=== PATIENT | male | born 1960 | race Caucasian/White ===

== ENCOUNTER → 2017-09-28 09:07 | Outpatient (CLI) | payer OTHER, SELFPAY ==
[2017-09-28 10:42] LABS: Hemoglobin A1c 6.2 % (4.2-6.3)
[2017-09-28 11:04] LABS: AST(SGOT) 26 U/L (15-37); Alanine Aminotransfer ALT/SGPT 39 U/L (16-61); Albumin, Serum 3.8 g/dL (3.2-5.0); Alkaline Phosphatase 71 U/L (45-117); Anion Gap 8 (5-15); BUN 19 mg/dL (7-18); BUN/Creat Ratio 18.3 RATIO (10-20); Calcium,Total 8.5 mg/dL (8.5-10.1); Chloride 108 mmol/L (98-107); Cholesterol 135 mg/dL (200); Creatinine, Serum 1.04 mg/dL (0.70-1.30); EST Glomerular Filtration Rate 78 mL/min (>60); Est Glom Filt Rate - Afr Amer 94 mL/min (>60); Globulin 3.7 g/dL (2.2-4.2); Glucose 114 mg/dL (74-106); High Density Lipoprotein 37 mg/dL; Potassium 4.7 mmol/L (3.5-5.1); Protein, Total 7.5 g/dL (6.4-8.2); Sodium Level 141 mmol/L (136-145); Triglycerides 130 mg/dL; Very Low Density Lipoprotein 26 mg/dL (5-40)
== END ==
PROVIDERS: Family Provider Internal Medicine; PCP Internal Medicine; Visit Provider Internal Medicine
DX: I10 Essential (primary) hypertension (principal); E78.5 Hyperlipidemia, unspecified; R73.03 Prediabetes
CPT/HCPCS: 36415; 80053; 80061; 83036

== ENCOUNTER → 2017-10-12 17:24 | Outpatient (CLI) | payer OTHER, SELFPAY ==
--- NOTE | 2017-10-12 17:25 | CT_ITS ---
STUDY: CTA CHEST REASON FOR EXAM: Male, 56 years old. TAA RADIATION DOSAGE (If Supplied By Facility): CTDIvol = ( 28.36 ) mGy, DLP = ( 859.14 ) mGycm TECHNIQUE: The examination was performed with the intravenous administration of 100 ml of Isovue 370 contrast material. Post-processing of the angiographic images was performed, with multiplanar reformation and 3D reconstruction. Individualized dose optimization techniques were used for this CT. COMPARISON: None. FINDINGS: Normal enhancement of the main pulmonary artery and right and left pulmonary arteries. Normal enhancement of the bilateral peripheral pulmonary arteries. There is no demonstrated pulmonary embolism. Dilated ascending aorta measuring 4.7 cm.. There is no demonstrated aortic dissection. Normal heart and pericardium. Normal mediastinum. Normal hilar regions. Normal visualized trachea and bronchi. The lungs are well expanded. Normal pulmonary parenchyma. Normal pleura. Normal chest wall structures. Mild degenerative vertebral changes. Normal visualized upper abdomen. CT/CTA Chest W/WO Contrast IMPRESSION: No demonstrated pulmonary embolism or arterial dissection. Dilated ascending aorta. Electronically Signed: Collin Tahkur DO at 21:43 EDT Tel [phone], Service support ,
== END ==
PROVIDERS: Family Provider Internal Medicine; PCP Internal Medicine; Visit Provider Internal Medicine Cardiovascular Disease
DX: I71.2 Thoracic aortic aneurysm, without rupture (principal)
CPT/HCPCS: 71275; Q9967

== ENCOUNTER → 2017-10-25 05:57 | Outpatient (CLI) | payer OTHER, SELFPAY ==
--- NOTE | 2017-10-25 06:07 | ECHOD_ITS ---
Reason For Study: Bicuspid AV Procedure This was a 2D Doppler, Color Flow transthoracic echocardiogram. Exam performed in department. Left Ventricle Normal LV size. Mild concentric left ventricular hypertrophy. Left ventricular systolic function is normal. The estimated ejection fraction is 55 %. Normal diastology for age. No regional wall motion abnormalities noted. Right Ventricle Normal RV size. Normal systolic function. Atria The left atrium is mildly enlarged. The right atrium is mildly enlarged. Mitral Valve Normal mitral valve. Mild (1+) eccentric mitral valve insufficiency. Tricuspid Valve Normal tricuspid valve. Mild (1+) tricuspid valve insufficiency. Pulmonary artery systolic pressure is 28 mmHg. Aortic Valve Bicuspid aortic valve. Mean aortic valve gradient 9 mmHg. Pulmonic Valve Normal pulmonic valve. Great Vessels Mild to moderately dilated aortic root. The pulmonary artery is normal size. Normal inferior vena cava. Pericardium/Pleural No pericardial effusion. MMode/2D Measurements & Calculations LVIDd: 5.2 cm IVSd: 1.4 cm LVOT diam: 2.3 cm LVIDs: 3.1 cm LVPWd: 1.2 cm LVOT area: 4.2 cm2 RVDd: 4.1 cm FS: 39.3 % Ao root diam: 4.4 cm LAV(MOD-bp): 87.0 ml EDV(MOD-sp4): 161.3 ml LA dimension: 4.7 cm LAV(MOD-bp) Indexed: 33.6 ml/m2 ESV(MOD-sp4): 68.4 ml LAV(MOD-sp2): 86.2 ml EF(MOD-sp4): 57.6 % LAV(MOD-sp4): 83.5 ml EDV(MOD-sp2): 148.0 ml SV(MOD-sp4): 92.9 ml SV(MOD-sp2): 78.0 ml EF(MOD-sp2): 52.7 % LA A4 area: 25.5 cm2 RA A4 area: 23.0 cm2 Doppler Measurements & Calculations MV E max otis: 74.3 cm/sec Lat Peak E' Otis: 10.5 cm/sec Med Peak E' Otis: 7.5 cm/sec MV A max otis: 51.0 cm/sec E/E' lat: 7.1 E/E' med: 9.9 MV E/A: 1.5 Ao V2 max: 206.7 cm/sec LV V1 max: 113.7 cm/sec SV(LVOT): 110.3 ml Ao max P.1 mmHg LV V1 max P.2 mmHg Ao V2 mean: 141.7 cm/sec LV V1 mean P.0 mmHg Ao mean P.0 mmHg LV V1 mean: 81.2 cm/sec Ao V2 VTI: 43.7 cm LV V1 VTI: 26.5 cm JUN(I,D): 2.5 cm2 JUN(V,D): 2.3 cm2 PA V2 max: 146.2 cm/sec TR max otis: 241.1 cm/sec TR max P.4 mmHg Interpretation Summary Normal LV size. Mild concentric left ventricular hypertrophy. The estimated ejection fraction is 55 %. Bicuspid aortic valve. Mild to moderately dilated aortic root. Ordering Physician: Ulises Rice Referring Physician: Mary Linares Performed By: Rashmi Summers RDCS
--- NOTE | 2017-10-25 15:16 | STRESSREP_ITS ---
Stress Test Report Exercise myocardial perfusion stress test. 56-year-old man with a history of coronary artery disease. Bicuspid aortic valve. Medications atenolol lisinopril atorvastatin. Stress protocol: Resting EKG demonstrates normal sinus rhythm with rate of 88 bpm normal intervals and noted resting blood pressure is 148/92 mmHg. The patient exercised according to the regular P[facility]o protocol for a total duration of 9 minutes and 41 seconds. Patient completed 41 seconds into stage IV of the Pipo protocol. The maximum heart rate attained was 151 bpm which was 92% of maximum predicted heart rate the maximum workload was 11.2 metabolic equivalents. At rest there were no ST or T-wave changes noted suggest ischemia peak exercise upsloping ST changes only were noted would not be the criteria for ischemia. Resting blood pressure is 148/92 with a peak blood pressure 184/ 92 mmHg. No clinical angina was noted the test was terminated due to leg fatigue. Myocardial perfusion protocol. 14.7 mCi of technetium 99m sestamibi was injected at rest. The patient exercised according to regular Pipo protocol for 9 minutes and 41 seconds attaining a maximum workload of 11.2 metabolic equivalents. At peak exercise 44.8 mCi of technetium 99m sestamibi was injected stress images were obtained stress and rest images were reconstructed and compared in the short axis vertical long horizontal long axis. Gated images were also obtained. Perfusion SPECT analysis. Review of the stress images demonstrate normal uptake of tracer noted in all areas of the myocardium. The resting images similarly demonstrate normal uptake of tracer noted in all areas of the myocardium. No areas of reversibility are noted suggest ischemia and no previous infarct is noted. Gated SPECT analysis: The gated ejection fraction is 66%. Conclusion . Normal exercise myocardial perfusion stress test at a high workload. No clinical angina noted. No arrhythmias noted. Good functional capacity. Preserved ejection fraction.
== END ==
PROVIDERS: Family Provider Internal Medicine; PCP Internal Medicine; Visit Provider Internal Medicine Cardiovascular Disease
DX: Q23.1 Congenital insufficiency of aortic valve (principal); I25.10 Atherosclerotic heart disease of native coronary artery without angina pectoris
CPT/HCPCS: 78452; 93017; 93306; A9500; A4216

== ENCOUNTER → 2018-08-04 09:59 | Outpatient (CLI) | payer OTHER, SELFPAY ==
[2018-08-04 12:49] LABS: Hemoglobin A1c 6.4 % (4.2-6.3)
--- OUTSIDE RECORDS SUMMARY | 2018-10-09 00:11 | XMS RPT_ITS ---
:1960 Author Organization [facility] Care Team Providers Name Role Phone Oleghe, Efewongbe Attending Unavailable Oleghe, Efewongbe Referring Unavailable Oleghe, Efewongbe Primary Care Unavailable Oleghe, Efewongbe Attending Unavailable Oleghe, Efewongbe Referring Unavailable Oleghe, Efewongbe Attending Unavailable Oleghe, Efewongbe Referring Unavailable Oleghe, Efewongbe Primary Care Unavailable María Mayen Attending Unavailable Krystal, Ulises Attending Unavailable Cebul III, Mauro Referring Unavailable Oleghe, Efewongbe Primary Care Unavailable Krystal, Austin Attending Unavailable Krystal, Ulises Referring Unavailable Oleghe, Efewongbe Primary Care Unavailable Krystal, Ulises Attending Unavailable Krystal, Ulises Referring Unavailable Oleghe, Efewongbe Primary Care Unavailable Krystal, Austin Attending Unavailable Krystal, Ulises Referring Unavailable Oleghe, Efewongbe Attending Unavailable Cebul III, Mauro Referring Unavailable Oleghe, Efewongbe Primary Care Unavailable Oleghe, Efewongbe Attending Unavailable Oleghe, Efewongbe Referring Unavailable Oleghe, Efewongbe Primary Care Unavailable Marcello Ortiz [employer] Attending Unavailable [facility], Mary Referring Unavailable PROBLEMS PROBLEMS DATE TYPE CONDITION / CODE ATTENDING STATUS SOURCE Unknown R73.03 - Prediabetes / Oleghe, Active [facility] R73.03(ICD-10) [facility] Hospital Repository Unknown I10 - Essential (primary) Krystal, Austin Active [facility] hypertension / Community I10(ICD-10) Hospital Repository Unknown 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, 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 / Q23.1(ICD-10) Hospital Repository Unknown I25.10 - Atherosclerotic Krystal, Austin Active [facility] heart disease of [place] Community coronary artery without Hospital angina pectoris / Repository I25.10(ICD-10) Unknown I71.2 - Thoracic aortic Krystal, Austin Active [facility] aneurysm, without rupture Community / I71.2(ICD-10) Hospital Repository Unknown E78.00 - Pure Krystal, Ulises Active [facility] hypercholesterolemia, Community unspecified / Hospital E78.00(ICD-10) Repository Unknown E78.0 - Pure Krystal, Austin Active [facility] hypercholesterolemia / Community E78.0(ICD-10) Hospital Repository Unknown E78.5 - Hyperlipidemia, Oleghe, Active [facility] unspecified / [facility] E78.5(ICD-10) Hospital Repository PROCEDURES PROCEDURES No Procedure Records FoundRESULTS RESULTS INTERNAL MEDICINE Observed: 08/05/2018 Status: F Source: [facility] OFFICE VISIT 11:59 AM [facility] REPOSITORY [facility] [address] [place] [address] [place] [address] OFFICE VISIT Date of Service: 08/05/18 MR#: [id number] Acct: [id number] Name: LEAHRAYCHASTITY Rep #: [id number] : 1960 Provider: Marcello Ortiz NP Age/Sex: 57/M Location: [facility] [place] [facility] Status: Signed Intake Vital Signs08/05/18 Height 6 ft 3 in Intake Visit Reasons: 3 MO F/U Chief Complaint: f/u visit Is patient in pain?: No Allergies No Known Allergies Allergy (Unverified 01/04/18 08:10) Medications aspirin 81 mg chewable tablet PO 09/28/17 [History Confirmed 01/04/18] atenolol 25 mg tablet 25 mg PO QDAY #90 tab 10/05/17 [Rx Confirmed 01/04/18] atorvastatin 80 mg tablet 80 mg PO QDAY #90 tab 10/08/17 [Rx Confirmed 01/04/18] sildenafil 25 mg tablet 25 mg PO ONCE PRN #7 tab 11/11/17 [Rx Confirmed 01/04/18] lisinopril 20 mg tablet 20 mg PO QDAY #90 tab 01/04/18 [Rx Confirmed 01/04/18] PFSH Medical History Thoracic aortic aneurysm (Chronic) Obesity (BMI 30-39.9) (Chronic) Non-rheumatic aortic regurgitation (Chronic) Atherosclerosis of coronary artery of [place] heart without angina pectoris (Chronic) Bicuspid aortic valve (Chronic) Hyperlipemia (Chronic) Hypertension (Chronic) Benign neoplasm of colon (Chronic) Chronic back pain (Chronic) Surgical History History of coronary artery stent placement (Chronic 12/21/06) History of appendectomy (Chronic) Family History Aunt Colon cancer Uncle Myocardial infarction Father CVA (cerebral vascular accident) Sister Cancer lyphoma Social History Smoking Status: Former smoker how long ago did patient quit smokin alcohol intake: current alcohol intake frequency: a few times a month Alcohol type: beer substance use type: does not use what type of physical activity do you participate 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 Patient has a past medical history as listed above.l Patient presents today in office for follow-up on pre-diabetes and hypertension. Patient had last hemoglobin A1c done in September and result was 6.2, most recent hemoglobin A1c was 6.4. Patient states he has been on and off working on his diet but having difficulty during the holidays. Patient states he eats carbs and bread frequently but tries to limit his sugary drinks. 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 Patient does not take blood sugars at home. Patient also here for follow-up on hypertension. He has a blood pressure cuff at home but denies using it. He currently is taking lisinopril 20 mg and atenolol 25 mg daily. His blood pressure in office today is 138/91, he denies any chest pain, pressure, headaches, heart palpitations. He does not limit his salt intake or processed foods currently. The patient otherwise denies any fever, chills, nausea, vomiting, shortness of breath, chest pain or pressure, palpitations, orthopnea, lower extremity edema, syncope or presyncopal episodes. ROS Const Constitutional: No weight change, body ache, chills, fatigue, sleep problems, fever(s), change in appetite, snoring, weakness, frequent falls, headache(s) or excessive sweating Eyes Eyes: No change in vision, eye pain, light sensitivity or blurry vision ENT ENT: No headache(s), abnormal hearing, ear pain, tinnitus, nasal congestion, sore throat or neck pain Resp Respiratory: No snoring, cough, shortness of breath or wheezing Cardio Cardiology: No excessive sweating, chest pain at rest, chest pain with exertion, shortness of breath, dyspnea on exertion, palpitations, orthopnea or lightheadedness Gastro GI: No abdominal pain, change in bowel habits, constipation, diarrhea, vomiting, nausea/dyspepsia or cramping Genitourinary Male: No painful urination, urinary incontinence, urinary frequency, urinary urgency, blood in urine, testicle pain or other Musc Musculoskeletal: No neck pain, abnormal walking, joint pain, back pain, limited range of motion, numbness or tingling Skin Skin: No redness, dry skin, itching, lesions, wounds or rash Neuro Neurology: No weakness, frequent falls, headache(s), abnormal hearing, abnormal walking, numbness, tingling, abnormal speech, dizziness or memory loss Psych Psychiatric: No change in appetite, No memory loss, No anxiety, No depression, No Thoughts of harming yourself/Others Endo Endocrine: No fatigue, excessive sweating, cold intolerance, increased thirst/drinking, heat intolerance, flushing or increased hunger Aller/Imm Allergy/Immunologic: No wheezing, itchy eyes, hives or seasonal allergy symptoms Braxton/Lymp Hematologic/Lymphatic: No easy bleeding, easy bruising or enlarged lymph nodes Exam Const General: cooperative, comfortable, no acute distress Nutritional Appearance: well nourished, obese Orientation: alert, oriented x3 Limitations: mental status not altered Neck Neck: normal visual inspection, no lymphadenopathy, full ROM Chest Chest palpation AND inspection: normal inspection of the chest Resp Effort AND Inspection: normal respiratory effort, able to speak in complete sentences, normal respiratory pattern, symmetric chest movement, no audible wheezes, no cough Auscultation: Bilateral: Clear to Auscultation Cardio Palpation: normal PMI Rate: regular rate Heart Sounds: S1 normal, S2 normal, normal S1 and S2, no click, no gallops, no murmurs, no rubs GI Inspection: normal to inspection Auscultation: normal bowel sounds, no hyperactive bowel sounds, no hypoactive bowel sounds Palpation: soft Skin General: no rashes or lesions noted, elasticity normal, turgor normal Lesions: no lesions Rashes: no rashes Psych Appearance: grossly normal Mental Status: mental status grossly normal Affect: normal affect Attitude: cooperative Thought Process: normal Judgment: judgment good Office Meds Flucelvax Quad 2261-2296 (PF) Performing Provider: PADDY Castillo Administered by: Stacy Nogueira on 08/05/18 11:14 Dose Route Admin Location Lot Number Expiration Date [facility] [employer] 60 mcg IM left deltoid [id number] 01/15/19 15152-065-29 [employer]. Assessment AND Plan 1. Essential hypertension I10 Plan Hypertension: Controlled on current medications, will not make any adjustments at this time. Patient to begin to take blood pressures at home and call in or drop off 2 week BP log. Will continue with current medication regimen, risk factor reduction, and lifestyle modifications. Discussed dietary changes that should be considered which include reducing the amount of sodium intake. Plan to follow up pending home BP readings. Did discuss the benefits of the Dash eating plan 2. Borderline type 2 diabetes mellitus R73.03 Plan Diabetes: Stable at this time, A1C remains in pre-diabetic range. The patient's most recent A1c was reviewed and had increased from 6.2 to 6.4. Discussed with patient lifestyle changes, risk factor reduction, and the benefits of maximizing nutrition and exercise. Patient verbalized understanding. Patient to follow-up in 3 months with repeat A1c will be done prior. At next office visit will address preventative physical as well. Orders Orders: Medications Discontinued: Flucelvax Quad 7410-0050 (PF) (flu vac qs 2018(4 yr up60 mcg (0.5 mL) IM ONCE 1 mL 0RF NS )CD(PF)) Discontinued Reason: Office Medication marsh s been Documented as given Plan Detail Other Orders Orders: Other Medications Discontinued: Flucelvax Quad 5121-4792 (PF) (flu vac qs 2018(4 yr60 mcg (0.5 mL) IM ONCE 1 mL 0RF NS Z23 up)CD(PF)) Discontinued Reason: Office Medicat ion has been Documented as given Health Concerns Influenza vaccine given during today's office visit, patient verbalized understanding of the risks and benefits of the procedure. Patient monitored for 15 minutes after administration and tolerated the procedure well. No signs of reaction at this time. Patient education given.Patient educated on [id number] analgesics that may be appropriate for site discomfort. Follow Up 3 Months Coding Level of Care Code Off vis,est,level 3 Diagnoses Essential hypertension I10 Hypertension type: essential hypertension Borderline type 2 diabetes mellitus R73.03 08/05/18 1159 <Electronically signed by Marcello THOMASON> Date Marcello THOMASON Cosigner Signature: Date (if applicable) CC: HEMOGLOBIN A1C Collected: 08/04/2018 Status: F Source: [facility] 10:10 AM [facility] REPOSITORY TYPE CODE TESTS RESULT OUT OF RANGE REFERENCE UNITS LAB L501.9985 4.2-6.3 % High HGB A1C 6.4 Performed By: #### L501.9985 #### [facility] [place], [address] PROGRESS Observed: 02/15/2018 Status: COMPLETED Source: [place] 1:01 PM [facility] REPOSITORY HNO ID: [id number] Author: Anju Dominguez Service: (none) Author Type: Athletics Director Type: Progress Notes Filed: 02/15/2018 1:09 PM Note Text: Patient had to change PCP due insurance coverage. He seeing Dr. Linares. Anju Dominguez MA PROGRESS Observed: 02/14/2018 Status: COMPLETED Source: [place] 5:04 PM [facility] REPOSITORY HNO ID: [id number] Author: Agustina Benoit Service: (none) Author Type: Nurse Practitioner Type: Progress Notes Filed: 02/15/2018 1:09 PM Note Text: Patient Outreach on 02/14/18 -HEP C AB IA W/CONF SCRN -COMP METABOLIC PANEL -LIPID PANEL BASIC -CBC + DIFF -HGB A1C Lab orders filed. Agustina Benoit, MSN ROLL COVERER.CEMENT BASED MATERIALS PUMP TENDER PROGRESS Observed: 02/14/2018 Status: COMPLETED Source: [place] 3:09 PM [facility] REPOSITORY HNO ID: [id number] Author: Anju Dominguez Service: (none) Author Type: Athletics Director Type: Progress Notes Filed: 02/15/2018 1:09 PM Note Text: PHMA TEAMLET DOCUMENTATION Provider Action/FYI: Patient needs appointment, needs labs ordered, PSR Action/FYI: Schedule patient for appointment Teamlet has identified patient by name and date of . Team:Dr. Henry Cheung III, MD, MARIA A Georges, Anju Dominguez MA, Vivian Mcdonough LPN, Jesi Ayoub CMA, Alessandra Cox PSR, ? Last Office Visit:Visit date not found ? Next Office Visit: Visit date not found ? Last BP/Labs: Blood Pressure: Last 3 Encounter BP Readings: Date: BP: 10/20/2016 120/72 09/29/2016 128/80 07/31/2016 138/90 Lipids: Cholesterol, Total (mg/dL) Date Value 09/11/2016 120 09/26/2014 113 HDL Cholesterol (mg/dL) Date Value 09/11/2016 34 09/26/2014 30 LDL Cholesterol (mg/dL) Date Value 09/11/2016 66 09/26/2014 62 Triglyceride (mg/dL) Date Value 09/11/2016 100 09/26/2014 103 HGB A1C: Lab Results Component Value Date HBA1C 5.9 02/14/2013 HBA1C 6.1 12/05/2012 TSH: No results found for: TSH) Care Gap: Plan: ? Confirm PCP / Status ? Type of appointment needed: Follow-up ? Consultation Appointments: No patient outreach needed at this time ? Labs, HM and Immunization: Labs: CBC (Diff or PLT) CMP HGB A1C Lipids Anju Dominguez MA CNPTOUTREACH Observed: 02/14/2018 Status: COMPLETED Source: [place] 12:00 AM [facility] REPOSITORY Patient Outreach (FAMPWS) PAULIE SOLOMON ([id number]) 1960 M Date Time Provider Department 02/14/18 ANJU DOMINGUEZ (TARIK) FAMPWS During your visit today, we recorded the following information about you: Anju Dominguez MA 02/15/2018 1:09 PM Signed PHMA TEAMLET DOCUMENTATION Provider Action/FYI: Patient needs appointment, needs labs ordered, PSR Action/FYI: Schedule patient for appointment Teamlet has identified patient by name and date of . Team:Dr. Henry Cheung III, MD, MARIA A Georges, Anju Dominguez MA, Vivian Mcdonough LPN, Jesi Ayoub CMA, Alessandra Cox PSR, ? Last Office Visit:Visit date not found ? Next Office Visit: Visit date not found ? Last BP/Labs: Blood Pressure: Last 3 Encounter BP Readings: Date: BP: 10/20/2016 120/72 09/29/2016 128/80 07/31/2016 138/90 Lipids: Cholesterol, Total (mg/dL) Date Value 09/11/2016 120 09/26/2014 113 HDL Cholesterol (mg/dL) Date Value 09/11/2016 34 09/26/2014 30 LDL Cholesterol (mg/dL) Date Value 09/11/2016 66 09/26/2014 62 Triglyceride (mg/dL) Date Value 09/11/2016 100 09/26/2014 103 HGB A1C: Lab Results Component Value Date HBA1C 5.9 02/14/2013 HBA1C 6.1 12/05/2012 TSH: No results found for: TSH) Care Gap: Plan: ? Confirm PCP / Status ? Type of appointment needed: Follow-up ? Consultation Appointments: No patient outreach needed at this time ? Labs, HM and Immunization: Labs: CBC (Diff or PLT) CMP HGB A1C Lipids TARIK Cadena, MSN ROLL COVERER.CEMENT BASED MATERIALS PUMP TENDER 02/15/2018 1:09 PM Signed Patient Outreach on 02/14/18 -HEP C AB IA W/CONF SCRN -COMP METABOLIC PANEL -LIPID PANEL BASIC -CBC + DIFF -HGB A1C Lab orders filed. Agustina Benoit MSN ROLL COVERER.LINDSAY Dominguez MA 02/15/2018 1:09 PM Signed Patient had to change PCP due insurance coverage. He seeing Dr. Linares. Anju Dominguez MA Allergies As of Date: 02/14/2018 (No Known Allergies) Date Reviewed: 10/20/2016 Reviewed by: Christina Gaitan Shopper - Fully Assessed Reason for Visit: PHMA/Care Gap Outreach [3605] Primary Visit Diagnosis:Need for hepatitis C screening test [Z11.59] Other Visit Diagnoses:Hyperlipidemia, mixed [E78.2] Impaired fasting glucose [R73.01] Essential hypertension, benign [I10] Order(s):HEP C AB IA W/CONF SCRN [[id number]] Order #: [id number] FUTURE COMP METABOLIC PANEL [SQCMP] Order #: [id number] FUTURE LIPID PANEL BASIC [SQLIPB] Order #: [id number] FUTURE CBC + DIFF [SQCBCDIF] Order #: [id number] FUTURE HGB A1C [FXTGL9V] Order #: [id number] FUTURE Prescriptions as of 02/14/2018 Sig: ATENOLOL 25 MG TABLET Take 1 tablet by mouth once d* SILDENAFIL 25 MG TABLET Take 1 tablet by mouth as nee* LISINOPRIL 10 MG TABLET Take 1 tablet by mouth once d* ATORVASTATIN 80 MG TABLET Take 1 tablet by mouth once d* * ASPIRIN 81 MG TABLET Take one(1) tablet daily. Problem List As Of Date 02/14/2018 Noted Resolved HYPERLIPIDEMIA NEC/NOS [E78.5] INVALID FOR* BENIGN HYPERTENSION [I10] INVALID FOR* Sebaceous cyst [L72.3] INVALID FOR*10/20/2016 GENERALIZED ANXIETY DIS [F41.1] INVALID FOR* Aortic Valve Disorders [I35.9] INVALID FOR* Melanocytic nevus of trunk [D22.5] INVALID FOR*10/20/2016 Melanocytic nevus of neck [D22.4] INVALID FOR*10/20/2016 Benign neoplasm of colon [D12.6] INVALID FOR* Bicuspid aortic valve [Q23.1] INVALID FOR* History of coronary artery stent placement [Z95*INVALID FOR* More... ASHD (arteriosclerotic heart disease) [I25.10] INVALID FOR* More... Impaired fasting glucose [R73.01] INVALID FOR* Encounter Status:Closed by ANJU DOMINGUEZ on 02/15/18 INTERNAL MEDICINE Observed: 02/04/2018 Status: F Source: [place] OFFICE VISIT 8:51 AM [facility] Internal Medicine [facility] [place] [address] [place] [address] OFFICE VISIT Date of Service: 02/04/18 MR#: [id number] Acct: [id number] Name: LEAHHELENCHASTITY PADGETT Félix Rep #: [id number] : 1960 Provider: Mary Linares MD Age/Sex: 57/M Location: [facility] Status: Signed Intake Vital Signs02/04/18 Height 6 ft 3 in Intake Visit Reasons: 1 mo fu Chief Complaint: BP recheck Is patient in pain?: No Allergies No Known Allergies Allergy (Unverified 01/04/18 08:10) Medications aspirin 81 mg chewable tablet PO 09/28/17 [History Confirmed 01/04/18] amoxicillin 500 mg tablet 500 mg PO ONCE PRN tab 09/29/17 [History Confirmed 01/04/18] atenolol 25 mg tablet 25 mg PO QDAY #90 tab 10/05/17 [Rx Confirmed 01/04/18] atorvastatin 80 mg tablet 80 mg PO QDAY #90 tab 10/08/17 [Rx Confirmed 01/04/18] sildenafil 25 mg tablet 25 mg PO ONCE PRN #7 tab 11/11/17 [Rx Confirmed 01/04/18] lisinopril 20 mg tablet 20 mg PO QDAY #90 tab 01/04/18 [Rx Confirmed 01/04/18] [facility] Medical History Thoracic aortic aneurysm (Chronic) Obesity (BMI 30-39.9) (Chronic) Non-rheumatic aortic regurgitation (Chronic) Atherosclerosis of coronary artery of [place] heart without angina pectoris (Chronic) Bicuspid aortic valve (Chronic) Hyperlipemia (Chronic) Hypertension (Chronic) Benign neoplasm of colon (Chronic) Chronic back pain (Chronic) Surgical History History of coronary artery stent placement (Chronic 12/21/06) History of appendectomy (Chronic) Family History Aunt Colon cancer Uncle Myocardial infarction Father CVA (cerebral vascular accident) Sister Cancer lyphoma Social History Smoking Status: Former smoker how long ago did patient quit smokin alcohol intake: current alcohol intake frequency: a few times a month Alcohol type: beer substance use type: does not use what type of physical activity do you participate 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 He has no concerns at this time. Blood pressure is achieving better control still not optimal. ROS Const Constitutional: No weight change, body ache, chills, fatigue, sleep problems, fever(s), change in appetite, snoring, weakness, frequent falls, headache(s) or excessive sweating Eyes Eyes: No change in vision, eye pain, light sensitivity or blurry vision ENT ENT: No headache(s), abnormal hearing, ear pain, tinnitus, nasal congestion, sore throat or neck pain Resp Respiratory: No snoring, cough, shortness of breath or wheezing Cardio Cardiology: No excessive sweating, chest pain at rest, chest pain with exertion, shortness of breath, dyspnea on exertion, palpitations, orthopnea or lightheadedness Gastro GI: No abdominal pain, change in bowel habits, constipation, diarrhea, vomiting, nausea/dyspepsia or cramping Genitourinary Male: No painful urination, urinary incontinence, urinary frequency, urinary urgency, blood in urine, testicle pain or other Musc Musculoskeletal: No neck pain, abnormal walking, joint pain, back pain, limited range of motion, numbness or tingling Skin Skin: No redness, dry skin, itching, lesions, wounds or rash Neuro Neurology: No weakness, frequent falls, headache(s), abnormal hearing, abnormal walking, numbness, tingling, abnormal speech, dizziness or memory loss Psych Psychiatric: No change in appetite, No memory loss, No anxiety, No depression, No Thoughts of harming yourself/Others Endo Endocrine: No fatigue, excessive sweating, cold intolerance, increased thirst/drinking, heat intolerance, flushing or increased hunger Aller/Imm Allergy/Immunologic: No wheezing, itchy eyes, hives or seasonal allergy symptoms Braxton/Lymp Hematologic/Lymphatic: No easy bleeding, easy bruising or enlarged lymph nodes Exam Const General: cooperative, no acute distress Orientation: alert, awake, oriented x3 [facility] Head: atraumatic, normocephalic Ears: hearing grossly normal bilaterally Resp Effort AND Inspection: normal respiratory effort, able to speak in complete sentences Auscultation: Bilateral: Clear to Auscultation Cardio Rate: regular rate Rhythm: regular rhythm Heart Sounds: S1 normal, S2 normal, murmur systolic II/ and at the right sternal border GI Palpation: soft, no hepatosplenomegaly Neuro General: alert, awake, oriented x3, moves all extremities, CN's II-XI intact bilaterally Extrem General: pedal edema Psych Appearance: grossly normal Mood: congruent mood Affect: normal affect Assessment AND Plan 1. Essential hypertension I10 Plan Improving. Blood pressure log with an average blood pressure 130/80. Continue current medications for now. Lifestyle modifications again discussed. Blood pressure still not as optimal at his next visit will adjust his medications. 2. Borderline type 2 diabetes mellitus R73.03 Plan Repeat A1c in 3 months. If still elevated, will possibly start on metformin due to comorbid conditions. This note was generated with [employer]if[employer] dictation software. It may contain incorrect words, spelling, and punctuation that were not noted in checking the note before signing. Plan Detail Follow Up 3 Months Coding Level of Care Code Off vis,est,level 3 Diagnoses Essential hypertension I10 Hypertension type: essential hypertension Borderline type 2 diabetes mellitus R73.03 02/04/18 0851 <Electronically signed by Mary Linares MD> Date Mary Linares MD Cosigner Signature: Date (if applicable) CC: INTERNAL MEDICINE Observed: 01/04/2018 Status: F Source: [place] OFFICE VISIT 9:38 AM [facility] Internal Medicine [address] [place] [address] [place] [address] OFFICE VISIT Date of Service: 01/04/18 MR#: [id number] Acct: [id number] Name: CHASTITY SOLOMON Rep #: [id number] : 1960 Provider: Mary Linares MD Age/Sex: 57/M Location: [facility] Status: Signed Intake Vital Signs01/04/18 Height 6 ft 3 in 01/04/18 Weight: 299 lb 01/04/18 Body Mass Index (BMI) 37.3 01/04/18 Blood Pressure 142/91 Intake Visit Reasons: 3 MO F/U Chief Complaint: 3 mo F/U Is patient in pain?: No Allergies No Known Allergies Allergy (Unverified 01/04/18 08:10) Medications aspirin 81 mg chewable tablet PO 09/28/17 [History Confirmed 01/04/18] amoxicillin 500 mg tablet 500 mg PO ONCE PRN tab 09/29/17 [History Confirmed 01/04/18] atenolol 25 mg tablet 25 mg PO QDAY #90 tab 10/05/17 [Rx Confirmed 01/04/18] atorvastatin 80 mg tablet 80 mg PO QDAY #90 tab 10/08/17 [Rx Confirmed 01/04/18] sildenafil 25 mg tablet 25 mg PO ONCE PRN #7 tab 11/11/17 [Rx Confirmed 01/04/18] lisinopril 20 mg tablet 20 mg PO QDAY #90 tab 01/04/18 [Rx Confirmed 01/04/18] PFSH Medical History Thoracic aortic aneurysm (Chronic) Obesity (BMI 30-39.9) (Chronic) Non-rheumatic aortic regurgitation (Chronic) Atherosclerosis of coronary artery of [place] heart without angina pectoris (Chronic) Bicuspid aortic valve (Chronic) Hyperlipemia (Chronic) Hypertension (Chronic) Benign neoplasm of colon (Chronic) Chronic back pain (Chronic) Surgical History History of coronary artery stent placement (Chronic 12/21/06) History of appendectomy (Chronic) Family History Aunt Colon cancer Uncle Myocardial infarction Father CVA (cerebral vascular accident) Sister Cancer lyphoma Social History Smoking Status: Former smoker how long ago did patient quit smokin alcohol intake: current alcohol intake frequency: a few times a month Alcohol type: beer substance use type: does not use what type of physical activity do you participate 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 He denies any acute complaints at this time. He reports compliance with his medications but not so much with his diet and other life style modifications. ROS Const Constitutional: No chills, fatigue, fever(s), frequent falls, malaise, weakness, sleep problems or change in appetite Eyes Eyes: No blurry vision, change in vision, double vision, discharge or visual disturbances ENT ENT: No abnormal hearing, ear pain, ear pressure, tinnitus or dizziness/vertigo Resp Respiratory: No cough, shortness of breath or wheezing Cardio Cardiology: No chest pain at rest, chest pain with exertion, shortness of breath, dyspnea on exertion, generalized swelling, irregular heart rhythm, lightheadedness, orthopnea, fast heart rate or palpitations Gastro GI: No abdominal pain, change in bowel habits, constipation, diarrhea, nausea/dyspepsia or vomiting Genitourinary Male: No difficulty urinating, burning urination, painful urination, urinary incontinence, urinary frequency, urinary urgency, urinary hesitancy, urinary retention, blood in urine, Frequent nighttime urination/ nocturia, sexual problems, testicle lump or testicle pain Musc Musculoskeletal: No joint pain, back pain, joint swelling, limited range of motion, numbness or tingling Skin Skin: No change in skin color, itching, rash or wounds Breast Breast: No breast lump or breast pain Neuro Neurology: No frequent falls, weakness, abnormal hearing, numbness, tingling, unsteady gait/balance, dizziness, loss of vision, memory loss or visual disturbances Psych Psychiatric: No memory loss, No anxiety, No change in appetite, No depression, No Thoughts of harming yourself/Others Endo Endocrine: No fatigue, heat intolerance, increased thirst/drinking, increased hunger or increased urination Aller/Imm Allergy/Immunologic: No wheezing, itchy eyes or seasonal allergy symptoms Braxton/Lymp Hematologic/Lymphatic: No easy bleeding, easy bruising or enlarged lymph nodes Exam Const General: cooperative, no acute distress Orientation: alert, awake, oriented x3 [facility] Head: atraumatic, normocephalic Ears: hearing grossly normal bilaterally Resp Effort AND Inspection: normal respiratory effort, able to speak in complete sentences Auscultation: Bilateral: Clear to Auscultation Cardio Rate: regular rate Rhythm: regular rhythm Heart Sounds: S1 normal, S2 normal, murmur systolic II/ and at the right sternal border GI Palpation: soft, no hepatosplenomegaly Neuro General: alert, awake, oriented x3, moves all extremities, CN's II-XI intact bilaterally Extrem General: pedal edema Psych Appearance: grossly normal Mood: congruent mood Affect: normal affect Assessment AND Plan 1. Essential hypertension I10 Plan Poorly controlled. Increase Lisinopril to 20mg daily. Life style/ dietary modifications again discussed. Follow up in 1 month. If no improvement, will add a diuretic. 2. Borderline type 2 diabetes mellitus R73.03 Plan Last A1C of 6.2. No prior/ known history of DM. Life style/dietary modifications discussed. Repeat A1C in 3 months Orders Orders: 3. Pure hypercholesterolemia E78.00 Plan Stable. Mildly low HDL. Exercise, weight loss and healthy fats discussed. Will follow. This note was generated with Te[employer]ent Systemsation software. It may contain incorrect words, spelling, and punctuation that were not noted in checking the note before signing. Plan Detail Other Medications New: Discontinued: Follow Up 3 Months Coding Level of Care Code Off vis,est,level 3 Diagnoses Essential hypertension I10 Hypertension type: essential hypertension Borderline type 2 diabetes mellitus R73.03 Pure hypercholesterolemia E78.00 Hyperlipidemia type: pure hypercholesterolemia 01/04/18 0938 <Electronically signed by Mary Linares MD> Date Mary Linares MD Cosigner Signature: Date (if applicable) CC: STRESS REPORT Observed: 10/25/2017 Status: F Source: [place] 3:16 PM [facility] REPOSITORY [facility] Cardiovascular Services [address] [place] [id number] MR#: [id number] Acct: [id number] Name: CHASTITY SOLOMON Rep #: [id number] : 1960 56 From: Ulises Rice MD Primary Care: Mary Linares MD Status: REG CLI Ordering Dr: Edward: Lisseth Hopkins Stress Test Report Exercise myocardial perfusion stress test. 56-year-old man with a history of coronary artery disease. Bicuspid aortic valve. Medications atenolol lisinopril atorvastatin. Stress protocol: Resting EKG demonstrates normal sinus rhythm with rate of 88 bpm normal intervals and noted resting blood pressure is 148/92 mmHg. The patient exercised according to the regular P[facility]o protocol for a total duration of 9 minutes and 41 seconds. Patient completed 41 seconds into stage IV of the Pipo protocol. The maximum heart rate attained was 151 bpm which was 92% of maximum predicted heart rate the maximum workload was 11.2 metabolic equivalents. At rest there were no ST or T-wave changes noted suggest ischemia peak exercise upsloping ST changes only were noted would not be the criteria for ischemia. Resting blood pressure is 148/92 with a peak blood pressure 184/92 mmHg. No clinical angina was noted the test was terminated due to leg fatigue. Myocardial perfusion protocol. 14.7 mCi of technetium 99m sestamibi was injected at rest. The patient exercised according to regular Pipo protocol for 9 minutes and 41 seconds attaining a maximum workload of 11.2 metabolic equivalents. At peak exercise 44.8 mCi of technetium 99m sestamibi was injected stress images were obtained stress and rest images were reconstructed and compared in the short axis vertical long horizontal long axis. Gated images were also obtained. Perfusion SPECT analysis. Review of the stress images demonstrate normal uptake of tracer noted in all areas of the myocardium. The resting images similarly demonstrate normal uptake of tracer noted in all areas of the myocardium. No areas of reversibility are noted suggest ischemia and no previous infarct is noted. Gated SPECT analysis: The gated ejection fraction is 66%. Conclusion . Normal exercise myocardial perfusion stress test at a high workload. No clinical angina noted. No arrhythmias noted. Good functional capacity. Preserved ejection fraction. 10/25/17 1516 <Electronically signed by Ulises Rice MD> Date Ulises Rice MD CC: Ulises Rice MD; Mary Linares MD Date Dictated: 10/25/171512 Date Transcribed: 10/25/171512 Employment Services Director: [place] Signed ECHOCARDIOGRAM COMPLETE Observed: 10/25/2017 Status: F Source: [place] 11:58 AM [facility] REPOSITORY [facility] Cardiovascular Services [address] [place] [address] Echo Complete 10/25/17816 MR#: [id number] Acct: [id number] Name: CHASTITY SOLOMON Rep #: [id number] : 1960 56 From: Ulises Rice MD Attending Dr: Ulises Rice MD Status: REG CLI Ordering Dr: Ulises Rice MD Date: 10/25/17 Location: [facility] Sex: M C Admitted: Reason For Study: Bicuspid AV Procedure This was a 2D Doppler, Color Flow transthoracic echocardiogram. Exam performed in department. Left Ventricle Normal LV size. Mild concentric left ventricular hypertrophy. Left ventricular systolic function is normal. The estimated ejection fraction is 55 %. Normal diastology for age. No regional wall motion abnormalities noted. Right Ventricle Normal RV size. Normal systolic function. Atria The left atrium is mildly enlarged. The right atrium is mildly enlarged. Mitral Valve Normal mitral valve. Mild (1+) eccentric mitral valve insufficiency. Tricuspid Valve Normal tricuspid valve. Mild (1+) tricuspid valve insufficiency. Pulmonary artery systolic pressure is 28 mmHg. Aortic Valve Bicuspid aortic valve. Mean aortic valve gradient 9 mmHg. Pulmonic Valve Normal pulmonic valve. Great Vessels Mild to moderately dilated aortic root. The pulmonary artery is normal size. Normal inferior vena cava. Pericardium/Pleural No pericardial effusion. MMode/2D Measurements AND Calculations LVIDd: 5.2 cm IVSd: 1.4 cm LVOT diam: 2.3 cm LVIDs: 3.1 cm LVPWd: 1.2 cm LVOT area: 4.2 cm2 RVDd: 4.1 cm FS: 39.3 % Ao root diam: 4.4 cm LAV(MOD-bp): 87.0 ml EDV(MOD-sp4): 161.3 ml LA dimension: 4.7 cm LAV(MOD-bp) Indexed: 33.6 ml/m2 ESV(MOD-sp4): 68.4 ml LAV(MOD-sp2): 86.2 ml EF(MOD-sp4): 57.6 % LAV(MOD-sp4): 83.5 ml EDV(MOD-sp2): 148.0 ml SV(MOD-sp4): 92.9 ml SV(MOD-sp2): 78.0 ml EF(MOD-sp2): 52.7 % LA A4 area: 25.5 cm2 RA A4 area: 23.0 cm2 Doppler Measurements AND Calculations MV E max otis: 74.3 cm/sec Lat Peak E' Otis: 10.5 cm/sec Med Peak E' Otis: 7.5 cm/sec MV A max otis: 51.0 cm/sec E/E' lat: 7.1 E/E' med: 9.9 MV E/A: 1.5 Ao V2 max: 206.7 cm/sec LV V1 max: 113.7 cm/sec SV(LVOT): 110.3 ml Ao max P.1 mmHg LV V1 max P.2 mmHg Ao V2 mean: 141.7 cm/sec LV V1 mean P.0 mmHg Ao mean P.0 mmHg LV V1 mean: 81.2 cm/sec Ao V2 VTI: 43.7 cm LV V1 VTI: 26.5 cm JUN(I,D): 2.5 cm2 JUN(V,D): 2.3 cm2 PA V2 max: 146.2 cm/sec TR max otis: 241.1 cm/sec TR max P.4 mmHg Interpretation Summary Normal LV size. Mild concentric left ventricular hypertrophy. The estimated ejection fraction is 55 %. Bicuspid aortic valve. Mild to moderately dilated aortic root. Ordering Physician: Ulises Rice Referring Physician: Mary Linares Performed By: Rashmi Summers RDCS 10/25/17 1157 Date Ulises Rice MD CC: Ulises Rice MD; Mary Linares MD Date Dictated: 10/25/17816 Date Transcribed: 10/25/17 115 Employment Services Director: Signed CTA CHEST W/WO Observed: 10/12/2017 Status: F Source: [place] CONTRAST 5:25 PM [facility] REPOSITORY [facility] Imaging Services [facility] [place] [address] CTA Chest W/WO Contrast MR#: [id number] Acct: [id number] Name: CHASTITY SOLOMON Rep #: [id number] : 1960 M 56 From: Collin Thakur DO PCP: Mary Linares MD Status: REG CLI Study: CTA Chest W/WO Contrast Date of Exam: 10/12/17 Exam# [id number] Ordering Dr: Ulises Rice MD STUDY: CTA CHEST REASON FOR EXAM: Male, 56 years old. TAA RADIATION DOSAGE (If Supplied By Facility): CTDIvol = ( 28.36 ) mGy, DLP = ( 859.14 ) mGycm TECHNIQUE: The examination was performed with the intravenous administration of 100 ml of Isovue 370 contrast material. Post-processing of the angiographic images was performed, with multiplanar reformation and 3D reconstruction. Individualized dose optimization techniques were used for this CT. COMPARISON: None. FINDINGS: Normal enhancement of the main pulmonary artery and right and left pulmonary arteries. Normal enhancement of the bilateral peripheral pulmonary arteries. There is no demonstrated pulmonary embolism. Dilated ascending aorta measuring 4.7 cm.. There is no demonstrated aortic dissection. Normal heart and pericardium. Normal mediastinum. Normal hilar regions. Normal visualized trachea and bronchi. The lungs are well expanded. Normal pulmonary parenchyma. Normal pleura. Normal chest wall structures. Mild degenerative vertebral changes. Normal visualized upper abdomen. CT/CTA Chest W/WO Contrast IMPRESSION: No demonstrated pulmonary embolism or arterial dissection. Dilated ascending aorta. Electronically Signed: Collin Thakur DO at 21:43 EDT Tel [phone], Service support , CC: Ulises Rice MD; Mary Linares MD Employment Services Director: Signed INTERNAL MEDICINE Observed: 10/01/2017 Status: F Source: [place] OFFICE VISIT 4:58 PM [facility] Internal Medicine [facility] [place] [address] [place] [address] OFFICE VISIT Date of Service: 09/28/17 MR#: [id number] Acct: [id number] Name: CHASTITY SOLOMON Rep #: [id number] : 1960 Provider: Mary Linares MD Age/Sex: 56/M Location: [facility] Status: Signed Intake Vital Signs09/28/17 Height 6 ft 3 in 09/28/17 Weight: 304 lb 09/28/17 Body Mass Index (BMI) 38.0 09/28/17 Blood Pressure 144/100 09/28/17 Blood Pressure Location Lt brachial Intake Visit Reasons: EST PCP Chief Complaint: establish care Is patient in pain?: No Allergies No Known Allergies Allergy (Unverified 09/29/17 10:49) Medications aspirin 81 mg chewable tablet PO 09/28/17 [History Confirmed 09/28/17] atenolol 25 mg tablet 25 mg PO ONCE #90 tab 09/28/17 [Rx Confirmed 09/28/17] atorvastatin 80 mg tablet 80 mg PO QDAY 09/28/17 [History Confirmed 09/28/17] lisinopril 10 mg tablet 10 mg PO QDAY #90 tab 09/28/17 [Rx Confirmed 09/28/17] amoxicillin 500 mg tablet 500 mg PO ONCE PRN tab 09/29/17 [History Confirmed 09/29/17] PFSH Medical History Thoracic aortic aneurysm (Chronic) Obesity (BMI 30-39.9) (Chronic) Non-rheumatic aortic regurgitation (Chronic) Atherosclerosis of coronary artery of [place] heart without angina pectoris (Chronic) Bicuspid aortic valve (Chronic) Hyperlipemia (Chronic) Hypertension (Chronic) Benign neoplasm of colon (Chronic) Chronic back pain (Chronic) Surgical History History of coronary artery stent placement (Chronic 12/21/06) History of appendectomy (Chronic) Family History Aunt Colon cancer Uncle Myocardial infarction Father CVA (cerebral vascular accident) Sister Cancer lyphoma Social History Smoking Status: Former smoker how long ago did patient quit smokin alcohol intake: current alcohol intake frequency: a few times a month Alcohol type: beer substance use type: does not use what type of physical activity do you participate 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 He has a past medical history of hypertension, borderline diabetes, hyperlipidemia, CT status post stent and bicuspid aortic valve. He had previously followed up at the [facility]. He is switching care due to insurance change. He has no acute complaints at this time. Blood pressure in office is noted to be slightly elevated today at 144/100 mmHg. Patient states that he has been out of his medications for about 2 weeks. His blood pressure is said to typically range in the 130s systolic and 80s diastolic. He otherwise reports compliance with his medications. He had followed up with Dr. Sanchez at the [facility] and per patient he had yearly echos to monitor his aortic root valve. Last echocardiogram was in 2016. He is doing well otherwise and denies chest pain, palpitations or shortness of breath. ROS Const Constitutional: No weight change, body ache, chills, fatigue, sleep problems, fever(s), change in appetite, snoring, weakness, frequent falls, headache(s) or excessive sweating Eyes Eyes: No change in vision, eye pain, light sensitivity or blurry vision ENT ENT: Positive for hearing loss; no headache(s), abnormal hearing, ear pain, tinnitus, nasal congestion, sore throat or neck pain Resp Respiratory: No snoring, cough, shortness of breath or wheezing Cardio Cardiology: No excessive sweating, chest pain at rest, chest pain with exertion, shortness of breath, dyspnea on exertion, palpitations, orthopnea or lightheadedness Gastro GI: No abdominal pain, change in bowel habits, constipation, diarrhea, vomiting, nausea/dyspepsia or cramping Musc Musculoskeletal: Positive for back pain (Chronic.); no neck pain, abnormal walking, limited range of motion, numbness or tingling Skin Skin: No redness, dry skin, itching, lesions, wounds or rash Neuro Neurology: No weakness, frequent falls, headache(s), abnormal hearing, abnormal walking, numbness, tingling, abnormal speech, dizziness or memory loss Psych Psychiatric: No change in appetite, No memory loss, No anxiety, No depression, No Thoughts of harming yourself/Others Endo Endocrine: No fatigue, excessive sweating, cold intolerance, increased thirst/drinking, heat intolerance, flushing or increased hunger Aller/Imm Allergy/Immunologic: No wheezing, itchy eyes, hives or seasonal allergy symptoms Braxton/Lymp Hematologic/Lymphatic: No easy bleeding, easy bruising or enlarged lymph nodes Exam Const General: cooperative, no acute distress Orientation: alert, awake, oriented x3 HENMT Head: atraumatic, normocephalic Ears: hearing grossly normal bilaterally Resp Effort AND Inspection: normal respiratory effort, able to speak in complete sentences Auscultation: Bilateral: Clear to Auscultation Cardio Rate: regular rate Rhythm: regular rhythm Heart Sounds: S1 normal, S2 normal, murmur systolic II/ and at the right sternal border GI Palpation: soft, no hepatosplenomegaly Neuro General: alert, awake, oriented x3, moves all extremities, CN's II-XI intact bilaterally Extrem General: pedal edema Psych Appearance: grossly normal Mood: congruent mood Affect: normal affect Assessment AND Plan 1. Hypertension I10 Plan Not properly controlled at this time. He has been out of his medications for 2 weeks. Blood pressure today is 144/100mmHg. Refills for his prescription given. Life style modifications. Follow up in 1 month. Orders Orders: 2. Hyperlipemia E78.5 Plan Per patient it typically is well controlled. Last checked over a year ago. Currently on Atorvastatin 80mg daily. Lipid profile and CMP ordered. Will follow. Orders Orders: 3. Bicuspid aortic valve Q23.1 Plan Stable per patient. Last Echo was in 2015. Scheduled to follow up with Dr. Rice tomorrow. Will follow. 4. Chronic back pain M54.9; G89.29 Plan Stable. Currently no neurologic deficits. Will follow. This note was generated with [employer] dictation software. It may contain incorrect words, spelling, and punctuation that were not noted in checking the note before signing. Plan Detail Other Orders Orders: Other Medications New: Follow Up 3 Months Coding Level of Care Code Off vis,new,level 4 Diagnoses Hypertension I10 Hyperlipemia E78.5 Bicuspid aortic valve Q23.1 Chronic back pain M54.9; G89.29 10/01/17 1658 <Electronically signed by Mary Linares MD> Date Mary Linares MD Cosigner Signature: Date (if applicable) CC: CARDIOLOGY VISIT Observed: 09/29/2017 Status: F Source: [place] REPORT 11:41 AM [facility] REPOSITORY [facility] [address] [place] [address] OFFICE VISIT Date of Service: 09/29/17 MR#: [id number] Acct: [id number] Name: CHASTITY SOLOMON Rep #: [id number] : 1960 Provider: Ulises Rice MD Age/Sex: 56/M Location: [facility] Status: Signed HPI HPI Chief Complaint: Initial visit. Details: CHASTITY SOLOMON, is a 56 M who presents to the office today for an initial visit. He is a gentleman with a history of coronary artery disease as well as bicuspid aortic valve. He did have premature coronary artery disease with a cardiac catheterization in 2006 demonstrating a normal left main coronary artery left anterior descending artery with an 80% proximal stenosis and a 95% proximal stenosis. The circumflex artery had minimal disease in the right coronary artery had a 70% stenosis. He underwent angioplasty and drug- eluting stent placement to the right coronary artery the proximal left anterior descending artery using 2 overlapping 3.0 20 and 3.5 24 mm Taxus drug-eluting stents. He is done well since then denying any chest pain or shortness breath or paroxysmal nocturnal dyspnea or pedal edema no neck arm or jaw discomfort suggest angina no dizziness no diaphoresis no near syncope or syncope. He has been having yearly echocardiograms the last one which was in June 2016. His physical exam today demonstrates clear lung castro regular rate and rhythm soft 2/6 systolic murmur noted left sternal border. No pedal edema is noted. Intake Vital Signs09/29/17 Height 6 ft 3 in 09/29/17 Weight: 301 lb 09/29/17 Body Mass Index (BMI) 37.6 09/29/17 Blood Pressure 124/78 09/29/17 Respiratory Rate 18 09/29/17 Pulse Rate 60 Intake Visit Reasons: Transfer from [facility] Allergies No Known Allergies Allergy (Unverified 09/29/17 10:49) Medications aspirin 81 mg chewable tablet PO 09/28/17 [History Confirmed 09/28/17] atenolol 25 mg tablet 25 mg PO ONCE #90 tab 09/28/17 [Rx Confirmed 09/28/17] atorvastatin 80 mg tablet 80 mg PO QDAY 09/28/17 [History Confirmed 09/28/17] lisinopril 10 mg tablet 10 mg PO QDAY #90 tab 09/28/17 [Rx Confirmed 09/28/17] [facility] Medical History Thoracic aortic aneurysm (Chronic) Obesity (BMI 30-39.9) (Chronic) Non-rheumatic aortic regurgitation (Chronic) Atherosclerosis of coronary artery of [place] heart without angina pectoris (Chronic) Bicuspid aortic valve (Chronic) Hyperlipemia (Chronic) Hypertension (Chronic) Benign neoplasm of colon (Chronic) Chronic back pain (Chronic) Surgical History History of coronary artery stent placement (Chronic 12/21/06) History of appendectomy (Chronic) Family History Aunt Colon cancer Uncle Myocardial infarction Father CVA (cerebral vascular accident) Sister Cancer lyphoma Social History Smoking Status: Former smoker how long ago did patient quit smokin alcohol intake: current alcohol intake frequency: a few times a month Alcohol type: beer substance use type: does not use what type of physical activity do you participate 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 ROS Const Const: Negative for fatigue, weakness, difficulty sleeping, frequent falls, headache(s) or excessive sweating Eyes Eyes: Negative for loss of peripheral vision, transient loss of vision, blurry vision or double vision ENT ENT: Negative for headache(s), dizziness, Nosebleed/epistaxis or balance problems Cardio Chest Pain: No Edema: None Muscle aches with walking: None Resp Respiratory: Negative for SOB with activity, SOB at rest, SOB orthopnea\SOB lying down or paroxysmal nocturnal dyspnea GI GI: Negative nausea or heartburn : Negative for hematuria Musc Musc: Negative for muscle aches/ myalgia, muscle weakness, joint pain or balance problems Skin Skin: Negative non-healing lesions, unusual bruising or rash Neuro Neuro: Negative for weakness, frequent falls, blurry vision, headache(s), dizziness, lightheadedness, orthostatic symptoms or double vision Braxton Hematologic/Lymphatic: Negative for easy bruising Endo Endo: Negative for fatigue, excessive sweating or increased thirst/drinking Psych Psych: Negative for anxiety or depression Allergy Allergy/Immunology: Negative for hives, Negative for rash Cardiology Exam Const Appearance: cooperative, healthy appearing, well developed, well groomed and no acute distress Nutritional Appearance: well nourished and average body habitus Orientation: alert, awake and oriented x3 Head Head: normal to inspection, normocephalic and atraumatic Ears: hearing grossly normal bilaterally and external ears normal Nose: external nose normal, nasal mucous membranes and turbinates normal, nares normal, septum normal, no nasal discharge Face and Sinus: face symmetric Mouth: oral mucosae normal, tongue normal, oropharynx normal and moist mucous membranes Teeth and gingiva: dentition normal Throat: posterior oropharynx normal, tonsils normal and uvula midline Eyes General: appearance normal, both eyes and all related structures Eyelids: eyelids normal Conjunctivae: conjunctivae normal Pupils: PERRL, normal by confrontation and accommodation normal EOM: EOM intact bilaterally Neck Neck: normal visual inspection, trachea midline and no JVD JVD: +5 Carotids: normal carotid upstroke and bounding pulses Chest Chest inspection: normal inspection of the chest, symmetric chest movement and normal respiratory effort Auscultation: Bilateral: Clear to Auscultation Cardio Palpation: normal PMI Rate: regular rate Rhythm: regular rhythm Heart sounds: S1 normal, S2 normal and normal, physiologic split S2; negative rub, gallop or murmur Murmur: Grade 2/6, early systolic and LLSB GI GI: normal to inspection, soft, no hepatosplenomegaly and bowel sounds present Neuro General: alert, awake, oriented x3, no focal sensory deficit, gait normal and moves all extremities Skin Skin: no rashes or lesions noted Extremities Pulses: Normal: Right Femoral Pulse, Left Femoral Pulse, Right Dorsalis Pedis Pulse, Left Dorsalis Pedis Pulse, Right Posterior Tibial Pulse, Left Posterior Tibial Pulse, Right Radial Pulse, Left Radial Pulse Lower Extremity Edema: None: Bilateral Musculoskel Musculoskeletal: No joint tenderness Psych Psychological: normal affect Assessment AND Plan 1. Atherosclerosis of [place] coronary artery of [place] heart without angina pectoris I25.10 PCI-Right PVB 3.0 x 20 mm Taxus ALLAN, Prox-LAD 3.5 x 24 mm Taxus ALLAN and Mid-LAD 30. x 20 mm Taxus ALLAN 12/21/2006 Plan He is status post angioplasty and stenting of the right coronary artery, and left anterior descending artery. He continues to do well. My recommendation would be to obtain an exercise myocardial perfusion stress test to make sure that he does not have any progression of these lesions as it has been over 11 years. He will continue with risk factor modification with aspirin high-intensity statin. Orders Orders: 2. Bicuspid aortic valve Q23.1 Plan He appears to have a stable bicuspid asymptomatic aortic valve. His last echocardiogram had demonstrated preserved ejection fraction of 60% 5 bicuspid aortic valve with aortic valve prolapse and mild aortic regurgitation. The peak gradient was 16 mmHg and the mean gradient of 10 mmHg. My recommendation will be for us to repeat this to make sure that there has been no change. He also had a CT scan of his chest in 2008 which had demonstrated fusiform aneurysmal dilatation of the ascending aorta and proximal arch. The maximum diameter was 4.5 in the anterior-posterior and 4.3 in the transverse diameter. It may be prudent to repeat the above. Orders Orders: 3. Essential hypertension I10 Plan His blood pressure appears to be under good control on the current medical therapy with SALVADOR inhibitor and the beta-poncoh. No change will be made. 4. Pure hypercholesterolemia E78.00; E78.0 Plan He is on high intensity statin and his most recent lipid profile was excellent with a total cholesterol 135, LDL 72, and HDL of 37. We will continue to follow him closely. Thank you for allowing me to participate in his care. Antibiotic prophylaxis. AHA recommendations will be instituted. 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) Coding Level of Care Code Off vis,new,level 4 Diagnoses Atherosclerosis of [place] coronary artery of [place] heart without angina pectoris I25.10 Coronary Disease-Associated Artery/Lesion type: [place] artery Bicuspid aortic valve Q23.1 Essential hypertension I10 Hypertension type: essential hypertension Pure hypercholesterolemia E78.00; E78.0 Hyperlipidemia type: pure hypercholesterolemia Coding Level of Care Code Off vis,new,level 4 Diagnoses Atherosclerosis of [place] coronary artery of [place] heart without angina pectoris I25.10 Coronary Disease-Associated Artery/Lesion type: [place] artery Bicuspid aortic valve Q23.1 Essential hypertension I10 Hypertension type: essential hypertension Pure hypercholesterolemia E78.00; E78.0 Hyperlipidemia type: pure hypercholesterolemia 09/29/17 1141 <Electronically signed by Ulises Rice MD> Date Ulises Rice MD Cosigner Signature: Date (if applicable) CC: Mary Linares MD HEMOGLOBIN A1C Collected: 09/28/2017 Status: F Source: [place] 9:10 AM [facility] REPOSITORY TYPE CODE TESTS RESULT OUT OF RANGE REFERENCE UNITS LAB L501.9985 4.2-6.3 % Normal HGB A1C 6.2 Performed By: #### L501.9985, L500.4050, L500.4100 #### [facility] [address] [place], [address] COMPREHENSIVE METABOLIC Collected: 09/28/2017 Status: F Source: [place] [facility] 9:10 AM [facility] REPOSITORY TYPE CODE TESTS RESULT OUT OF RANGE REFERENCE UNITS LAB L501.0100 74-106 mg/dL High GLU 114 Result Comment: Fasting Glucose result from 100 to 125 mg/dL suggests IMPAIRED HOMEOSTASIS per A.D.A. criteria. Please note revised GLUCOSE reference range effective 2017. LAB L501.1000 7-18 mg/dL High BUN 19 LAB L501.1100 0.70-1.30 mg/dL Normal CREAT,SERUM 1.04 Result Comment: The validity of the calculated GFR AND GFRAA in patients over 70 years has not been determined. Clinical correlation is essential. LAB L501.1110 >60 mL/min Normal EST GFR 78 Result Comment: Non- GFR Calc LAB L501.1115 >60 mL/min Normal EST GFR - AA 94 Result Comment: GFR Calc LAB L501.1300 10-20 RATIO Normal BUN/CRE 18.3 LAB L501.1500 6.4-8.2 g/dL T Normal PROT 7.5 LAB L501.1800 3.2-5.0 g/dL Normal ALB 3.8 LAB L501.1950 2.2-4.2 g/dL Normal GLOB 3.7 LAB L501.2000 0.9-2.4 RATIO Normal A/G 1.0 LAB L501.2200 8.5-10.1 mg/dL CA Normal 8.5 LAB L501.4100 15-37 U/L Normal AST 26 LAB L501.4305 45-117 U/L Normal ALK P 71 LAB L501.4405 16-61 U/L Normal ALT 39 Result Comment: Please note revised ALT reference range effective 2017. LAB L501.4600 0.20-1.00 mg/dL Normal T BILI 0.90 LAB L501.5300 136-145 mmol/L Normal NA 141 LAB L501.5600 3.5-5.1 mmol/L Normal K 4.7 LAB L501.5900 98-107 mmol/L High CL 108 LAB L501.6100 21.0-32.0 mmol/L Normal CO2 25.0 LAB L501.6200 5-15 Normal GAP 8 Performed By: #### L501.9985, L500.4050, L500.4100 #### [facility] [address] [place], [place], [address] LIPID PROFILE Collected: 09/28/2017 Status: F Source: [place] 9:10 AM [facility] REPOSITORY TYPE CODE TESTS RESULT OUT OF RANGE REFERENCE UNITS LAB L501.4900 200 mg/dL Normal CHOL 135 Result Comment: <200 mg/dL Desirable 200-240 mg/dL Borderline >240 mg/dL High Risk LAB L501.5000 mg/dL Normal TRIG 130 Result Comment: The drugs N-Acetylcysteine and Metamizole may falsely depress this assay. Serum Triglycerides Reference Interval Normal <150 mg/dL Borderline high 150 - 199 mg/dL High 200 - 499 mg/dL Very High > or = 500 mg/dL LAB L501.6400 mg/dL Low HDL 37 Result Comment: The drugs N-Acetylcysteine and Metamizole may falsely depress this assay. Reference Range HDL <40 mg/dL Low HDL Cholesterol HDL >or= 60 mg/dL High HDL Cholesterol LAB L501.6500 0-130 mg/dL Normal LDL 72 LAB L501.6600 5-40 mg/dL Normal VLDL 26 Performed By: #### L501.9985, L500.4050, L500.4100 #### [facility] [address], [address] ALLERGIES ALLERGIES DATE TYPE / CODE NAME / CODE REACTION SEVERITY SOURCE 01/04/2018 Drug No Known Unknown [facility] Allergy/4160 Allergies/F00 Hospital 15875(SNOMED 5135628(RXNOR Repository CT) M) ENCOUNTERS ENCOUNTERS ADMIT/DISCHARGE ACCOUNT ADMITTING ENCOUNTER LOCATION SOURCE NUMBER CLASS 08/05/2018/ [id number] Ambulatory BMSBuilding:B [place] 9 5 [facility] Repository 08/04/2018 [id number] Ambulatory [place] [facility] [facility] ing:MTLAB Repository 02/04/2018/ [id number] Ambulatory BMSBuilding:B [place] 8 5 [facility] Repository 01/04/2018/ [id number] Ambulatory BMSBuilding:B [facility] 8 5 [facility] Repository 10/25/2017 [id number] Ambulatory [facility] ing:[facility] Repository 10/25/2017 [id number] Ambulatory BMSBuilding:W [facility] 1 [facility] Repository 10/12/2017 [id number] Ambulatory [place] [facility] 4 [facility] ing:CT Repository 09/29/2017/ [id number] Ambulatory BMSBuilding:B [place] 8 7 [facility] Repository 09/28/2017 [id number] Ambulatory BMSBuilding:B [facility] 9 [facility] Repository 09/28/2017 [id number] Ambulatory [facility] ing:MTLAB Repository 09/28/2017/ [id number] Ambulatory BMSBuilding:B [place] 8 6 [facility] Repository PAYERS PAYERS ENCOUNTER GUARANTOR PAYER SUBSCRIBER SOURCE 08/05/2018 CHASTITY J Primary CHASTITY J [facility] [id number] Insurance:[facility] icy [place]: [id number] [id number] Repository 49[address]Tgy: [phone]) e Date:7434-63-01LQ [phone] (HP) [address] [place] [address]KA: 08/05/2018 Secondary NOT GIVENUNK [facility] Insurance:SELF PAY Counts Include [address] Number: Effective Repository Date:2018-08-01 08/04/2018 CHASTITY J Primary CHASTITY J [facility] [id number] Insurance:[employer]AREPol YACAPRARADOB: Community [place] icy Number: [id number] [id number] Repository [address]Zqs: [phone]) e Date:7288-78-60PN [phone] (HP) [address] [place] [address]ES: 08/04/2018 Secondary NOT GIVENUNK [facility] Insurance:SELF PAY [facility] Number: Effective Repository Date:2018-08-04 02/04/2018 CHASTITY J Primary CHASTITY J [place] [id number] Insurance:[employer]ULTCAREPol YACAPRARADOB: [facility] icy Number: [id number], [place] [id number] Repository [address]Zug: [phone]) e Date:5769-38-50LW [phone] (HP) [address] [place] [address]AK: 02/04/2018 Secondary NOT GIVENUNK [place] Insurance:SELF PAY [facility] Number: Effective Repository Date:2018-02-04 01/04/2018 CHASTITY J Primary CHASTITY J [place] [id number] Insurance:[employer]ULTCAREPol YACAPRARADOB: Community [place] icy Number: [id number], [place] [id number] Repository 41985Pat: [phone]) e Date:7236-01-94LU [phone] (HP) [address] [place] [address]PA: 01/04/2018 Secondary NOT GIVENUNK [facility] Insurance:SELF PAY Counts Include [address] [facility] Number: Effective Repository Date:2018-01-04 10/25/2017 CHASTITY J Primary CHASTITY J [facility] [id number] Insurance:[employer]ULTCAREPol YACAPRARADOB: Community [place] icy Number: [id number], [place] [id number] Repository [address]Vne: [phone]) e Date:6483-87-70JM [phone] (HP) [address] [place] [address]DR: 10/25/2017 Secondary NOT GIVENUNK [place] Insurance:SELF PAY [facility] Number: Effective Repository Date:2017-10-06 10/25/2017 CHASTITY J Primary CHASTITY J [place] [id number] Insurance:[employer]ULTCAREPol YACAPRARADOB: [facility] ic Number: [id number], [place] [id number] Repository [address]Oez: [phone]) e Date:9842-47-73OX [phone] (HP) [address] [place] [address]NV: 10/25/2017 Secondary NOT GIVENUNK [facility] Insurance:SELF PAY [facility] Number: Effective Repository Date:2017-10-25 10/12/2017 CHASTITY J Primary CHASTITY J [facility] [id number] Insurance:[employer]ULTCAREPol YACAPRARADOB: [facility] ic Number: [id number], [place] [id number] Repository [address]Zrb: [phone]) e Date:7491-67-40KV [phone] (HP) [address] [address]YU: 10/12/2017 Secondary NOT GIVENUNK [facility] Insurance:SELF PAY [facility] Number: Effective Repository Date:2017-10-06 09/29/2017 CHASTITY Primary CHASTITY [facility] [id number] Insurance:[employer]ULTCAREPol YACAPRARADOB: [facility] ic Number: [id number], [place] [id number] Repository [address]Ikr: [phone]) e Date:9865-48-23EG [phone] (HP) [address] [place] [address]MI: 09/29/2017 Secondary NOT GIVENUNK [place] Insurance:SELF PAY Counts Include [address] [facility] Number: Effective Repository Date:2017-08-26 09/28/2017 CHASTITY Primary CHASTITY [facility] [id number] Insurance:[employer]ULTCAREPol YACAPRARADOB: Community [place] icy Number: [id number], [place] [id number] Repository [address]Ico: [phone]) e Date:0610-04-93ID [phone] (HP) [address] [place] [address]KI: 09/28/2017 Secondary NOT GIVENUNK [place] Insurance:SELF PAY [facility] Number: Effective Repository Date:2017-09-28 09/28/2017 CHASTITY Primary CHASTITY [facility] [id number] Insurance:[employer]ULTCAREPol YACAPRARADOB: Community [place] icy Number: [id number], [place] [id number] Repository [address]Gim: [phone]) e Date:3657-95-55OI [phone] (HP) [address] [place] [address]JJ: 09/28/2017 Secondary NOT GIVENUNK [facility] Insurance:SELF PAY [facility] Number: Effective Repository Date:2017-09-28 09/28/2017 CHASTITY Primary CHASTITY [place] [id number] Insurance:[employer]ULTCAREPol YACAPRARADOB: Community [place] icy Number: [id number], [place] [id number] Repository 23[address]Rad: [phone]) e Date:2033-11-17TZ [phone] (HP) [address] [place] [address]ZR: 09/28/2017 Secondary NOT GIVENUNK [place] Insurance:SELF PAY [facility] Number: Effective Repository Date:2017-09-16
== END ==
PROVIDERS: Family Provider Internal Medicine; PCP Internal Medicine; Referring Provider Internal Medicine; Visit Provider Internal Medicine
DX: R73.03 Prediabetes (principal)
CPT/HCPCS: 36415; 83036

== ENCOUNTER → 2018-10-18 09:18 | Outpatient (CLI) | payer OTHER, SELFPAY ==
[2018-10-05 12:36] VITALS: BMI 37.2
[2018-10-18 11:22] LABS: AST(SGOT) 23 U/L (15-37); Alanine Aminotransfer ALT/SGPT 28 U/L (16-61); Albumin, Serum 3.6 g/dL (3.2-5.0); Alkaline Phosphatase 69 U/L (45-117); Bilirubin, Direct 0.21 mg/dL (0.00-0.30); Cholesterol 107 mg/dL (200); Globulin 3.4 g/dL (2.2-4.2); High Density Lipoprotein 32 mg/dL; Triglycerides 130 mg/dL; Very Low Density Lipoprotein 26 mg/dL (5-40)
== END ==
PROVIDERS: Family Provider Internal Medicine; PCP Internal Medicine; Referring Provider Internal Medicine Cardiovascular Disease; Visit Provider Internal Medicine Cardiovascular Disease
DX: E78.00 Pure hypercholesterolemia, unspecified (principal)
CPT/HCPCS: 36415; 80061; 80076

== ENCOUNTER → 2020-07-24 10:50 | Outpatient (CLI) | payer OTHER, SELFPAY ==
[2020-07-24 10:23] VITALS: BMI 38.6
[2020-07-24 12:50] LABS: Hemoglobin A1c 6.3 % (3.8-5.6)
[2020-07-24 12:51] LABS: ALB/GLOB Ratio 1.1 RATIO (0.9-2.4); AST(SGOT) 26 U/L (15-37); Alanine Aminotransfer ALT/SGPT 39 U/L (16-61); Albumin, Serum 3.7 g/dL (3.2-5.0); Alkaline Phosphatase 79 U/L (45-117); Anion Gap 4 (5-15); BUN 15 mg/dL (7-18); BUN/Creat Ratio 15.5 RATIO (10-20); Calcium,Total 8.8 mg/dL (8.5-10.1); Chloride 107 mmol/L (98-107); Cholesterol 130 mg/dL (200); Creatinine, Serum 0.97 mg/dL (0.70-1.30); EST Glomerular Filtration Rate 84 mL/min (>60); Est Glom Filt Rate - Afr Amer 102 mL/min (>60); Globulin 3.5 g/dL (2.2-4.2); Glucose 126 mg/dL (74-106); High Density Lipoprotein 32 mg/dL; Potassium 4.8 mmol/L (3.5-5.1); Protein, Total 7.2 g/dL (6.4-8.2); Sodium Level 139 mmol/L (136-145); Triglycerides 162 mg/dL; Very Low Density Lipoprotein 32 mg/dL (5-40)
[2020-07-24 12:52] LABS: Absolute Lymphocyte Count 2.12 X10^3/uL (0.83-4.51); Absolute Neutrophil Count 3.2 X10^3/uL (2.0-7.7); Basophil# 0.07 X10^3/uL; Basophil% 1.1 % (0-1); Eosinophil# 0.26 X10^3/uL; Eosinophils% 4.1 % (0-5); Hematocrit 44.9 % (40-54); Hemoglobin 14.6 g/dL (13.0-16.5); Lymphocyte # 2.12 X10^3/ul (4.0); Lymphocyte % 33.4 % (19-41); Mean Corp Hgb Conc 32.5 g/dL (32-36); Mean Corpuscular Hgb 30.5 pg (27.0-32.0); Mean Corpuscular Volume 93.7 fL (80-94); Mean Platelet Vol. 9.9 fl (6.2-12.0); Monocyte# 0.65 X10^3/uL; Monocyte% 10.3 % (0-10); NRBC Flagged by Analyzer 0 % (0-5); Neutrophil # 3.22 X10^3/uL (2.7-7.7); Neutrophil % 50.8 % (47-70); Platelet Count 264 K/mm3 (150-450); RBC Distribution Width CV 12.7 % (11.6-14.6); RBC Distribution Width SD 43.8 fl (35.1-43.9); Red Blood Count 4.79 M/mm3 (4.6-6.2); White Blood Count 6.3 K/mm3 (4.4-11.0)
== END ==
PROVIDERS: PCP Internal Medicine; Referring Provider Internal Medicine; Visit Provider Internal Medicine
DX: E78.5 Hyperlipidemia, unspecified (principal); I10 Essential (primary) hypertension; R73.03 Prediabetes
CPT/HCPCS: 36415; 80053; 80061; 83036; 85025

== ENCOUNTER 2020-09-26 07:08 | Outpatient (RCR) | payer OTHER, SELFPAY ==
[2020-09-18 10:12] VITALS: BMI 38.1
[2020-09-26] MEDS: COVID-19 VACC, MRNA(PFIZER)/PF 30 MCG/0.3 ML SYRINGE IM (15:42)
[2020-10-17] MEDS: COVID-19 VACC, MRNA(PFIZER)/PF 30 MCG/0.3 ML SYRINGE IM (15:35)
== END 2020-09-26 23:59 ==
LOC: IMMUN 07:08
PROVIDERS: PCP Internal Medicine; Referring Provider Family Medicine; Visit Provider Family Medicine
DX: Z23 Encounter for immunization (principal)
CPT/HCPCS: 0001A; 0002A; 91300

== ENCOUNTER → 2022-07-21 | Outpatient (CLI) | payer OTHER, SELFPAY ==
[2022-07-21 16:32] LABS: Absolute Lymphocyte Count 2.97 X10^3/uL (0.83-4.51); Absolute Neutrophil Count 3.3 X10^3/uL (2.0-7.7); Basophil# 0.09 X10^3/uL; Basophil% 1.2 % (0-1); Eosinophils% 4.1 % (0-5); Hematocrit 44.7 % (40-54); Hemoglobin 14.6 g/dL (13.0-16.5); Lymphocyte # 2.97 X10^3/ul (0.83-4.51); Lymphocyte % 40.1 % (19-41); Mean Corp Hgb Conc 32.7 g/dL (32-36); Mean Corpuscular Hgb 30.7 pg (27.0-32.0); Mean Corpuscular Volume 93.9 fL (80-94); Mean Platelet Vol. 9.4 fl (6.2-12.0); Monocyte# 0.76 X10^3/uL; Monocyte% 10.3 % (0-10); NRBC Flagged by Analyzer 0 % (0-5); Neutrophil # 3.25 X10^3/uL (2.7-7.7); Neutrophil % 43.9 % (47-70); Platelet Count 242 K/mm3 (150-450); RBC Distribution Width CV 12.5 % (11.6-14.6); RBC Distribution Width SD 43.2 fl (35.1-43.9); Red Blood Count 4.76 M/mm3 (4.6-6.2); White Blood Count 7.4 K/mm3 (4.4-11.0)
[2022-07-21 16:52] LABS: Microalbumin,Random Urine 17.2 mg/L (NO RANGE EST.); Microalbumin:Creatinine Ratio 10.4 mg/g CRE (<30 mg/g CRE)
[2022-07-21 17:10] LABS: ALB/GLOB Ratio 1.1 RATIO (0.9-2.4); AST(SGOT) 23 U/L (15-37); Alanine Aminotransfer ALT/SGPT 38 U/L (16-61); Albumin, Serum 3.8 g/dL (3.2-5.0); Alkaline Phosphatase 74 U/L (45-117); Anion Gap 7 (5-15); BUN 13 mg/dL (7-18); BUN/Creat Ratio 13.6 RATIO (10-20); Calcium,Total 8.7 mg/dL (8.5-10.1); Chloride 105 mmol/L (98-107); Cholesterol 143 mg/dL (200); Creatinine, Serum 0.95 mg/dL (0.70-1.30); EST Glomerular Filtration Rate 85 mL/min (>60); Est Glom Filt Rate - Afr Amer 103 mL/min (>60); Globulin 3.5 g/dL (2.2-4.2); Glucose 92 mg/dL (74-106); High Density Lipoprotein 39 mg/dL; PSA,Total - Annual Screen 0.75 ng/mL (0.00-4.00); Potassium 4.4 mmol/L (3.5-5.1); Protein, Total 7.3 g/dL (6.4-8.2); Sodium Level 138 mmol/L (136-145); Thyroid Stim Hormone (TSH) 1.57 uIU/mL (0.358-3.74); Triglycerides 153 mg/dL; Very Low Density Lipoprotein 31 mg/dL (5-40)
== END | disposition home or self-care (01) ==
LOC: BIMLAB 15:43
PROVIDERS: PCP Internal Medicine; Visit Provider Nurse Practitioner Family
DX: Z12.5 Encounter for screening for malignant neoplasm of prostate (principal); E11.9 Type 2 diabetes mellitus without complications; E78.5 Hyperlipidemia, unspecified; I10 Essential (primary) hypertension
CPT/HCPCS: 36415; 80053; 80061; 82043; 82570; 84153; 84443; 85025; G0103

== ENCOUNTER → 2023-08-09 | Outpatient (CLI) | payer OTHER, SELFPAY ==
[2023-08-09 12:16] LABS: Absolute Lymphocyte Count 2.28 X10^3/uL (0.83-4.51); Absolute Neutrophil Count 3.6 X10^3/uL (2.0-7.7); Basophil# 0.07 X10^3/uL; Eosinophil# 0.23 X10^3/uL; Eosinophils% 3.3 % (0-5); Hematocrit 43.5 % (40-54); Hemoglobin 14.7 g/dL (13.0-16.5); Lymphocyte # 2.28 X10^3/ul (0.83-4.51); Lymphocyte % 32.7 % (19-41); Mean Corp Hgb Conc 33.8 g/dL (32-36); Mean Corpuscular Hgb 31.3 pg (27.0-32.0); Mean Corpuscular Volume 92.8 fL (80-94); Mean Platelet Vol. 9.6 fl (6.2-12.0); Monocyte# 0.72 X10^3/uL; Monocyte% 10.3 % (0-10); NRBC Flagged by Analyzer 0 % (0-5); Neutrophil # 3.64 X10^3/uL (2.7-7.7); Neutrophil % 52.3 % (47-70); Platelet Count 237 K/mm3 (150-450); RBC Distribution Width CV 12.6 % (11.6-14.6); RBC Distribution Width SD 42.4 fl (35.1-43.9); Red Blood Count 4.69 M/mm3 (4.6-6.2)
[2023-08-09 13:04] LABS: AST(SGOT) 28 U/L (15-37); Alanine Aminotransfer ALT/SGPT 43 U/L (16-61); Albumin, Serum 3.7 g/dL (3.2-5.0); Alkaline Phosphatase 65 U/L (45-117); Anion Gap 6 (5-15); BUN 18 mg/dL (7-18); BUN/Creat Ratio 18.1 RATIO (10-20); Chloride 108 mmol/L (98-107); Cholesterol 127 mg/dL (200); Creatinine, Serum 0.99 mg/dL (0.70-1.30); EST Glomerular Filtration Rate 81 mL/min (>60); Est Glom Filt Rate - Afr Amer 98 mL/min (>60); Globulin 3.7 g/dL (2.2-4.2); Glucose 133 mg/dL (74-106); High Density Lipoprotein 35 mg/dL; PSA,Total - Annual Screen 0.65 ng/mL (0.00-4.00); Potassium 4.6 mmol/L (3.5-5.1); Protein, Total 7.4 g/dL (6.4-8.2); Sodium Level 139 mmol/L (136-145); Triglycerides 149 mg/dL; Very Low Density Lipoprotein 30 mg/dL (5-40)
[2023-08-09 13:43] LABS: Hemoglobin A1c 6.6 % (3.8-5.6)
== END | disposition home or self-care (01) ==
PROVIDERS: PCP Internal Medicine; Visit Provider Internal Medicine
DX: I10 Essential (primary) hypertension (principal); E11.9 Type 2 diabetes mellitus without complications; N40.0 Benign prostatic hyperplasia without lower urinary tract symptoms
CPT/HCPCS: 36415; 80053; 80061; 83036; 84153; 85025; G0103

== ENCOUNTER 2024-06-01 08:23 | Day surgery (SDC) | payer OTHER, SELFPAY ==
[2024-06-01] VITALS (8 sets, daily range): BP systolic 73–134; BP diastolic 58–94; PULSE 65–73; RESP 14–17; TEMP 36.2–36.6; O2SAT 93–97; BMI 38.0
--- NOTE | 2024-06-01 08:56 | PRE.ANES_ITS ---
ASA Classification* ASA Classification ASA Classification: 3 Assessment & Plan Anesthesia* Anesthesia Assessment Anesthesia Assessment: Discussed sedation and/or anesthesia options, risks, benefits, and alternatives with patient/parents/legal guardian/POA. Questions invited. The patient/parents/legal guardian/POA seems to understand and agrees to proceed with anesthesia plan. Reviewed the physical assessment, medical history, allergy history and patient home medications list prior to surgery/procedure/anesthetic and documented any changes. Performed airway and anesthesia risk assessments. Anesthesia Type Anesthesia Type: MAC Anesthesia Focused Assessment* Temperature: 97.7 F Pulse Rate: 65 Blood Pressure: 134/94 Respiratory Rate: 17 Pulse Ox: 97 Airway Assessment Mouth opens: >3 cm Mallampati Score: II Focused Labs Anesthesia Preop lab: CBC WBC 7.0 K/mm3 (4.4-11.0) 08/09/23 11:28 RBC 4.69 M/mm3 (4.6-6.2) 08/09/23 11:28 Hgb 14.7 g/dL (13.0-16.5) 08/09/23 11:28 Hct 43.5 % (40-54) 08/09/23 11:28 Plt Count 237 K/mm3 (150-450) 08/09/23 11:28 CHEMISTRY Potassium 4.6 mmol/L (3.5-5.1) 08/09/23 11:28 Sodium 139 mmol/L (136-145) 08/09/23 11:28 BUN 18 mg/dL (7-18) 08/09/23 11:28 Creatinine 0.99 mg/dL (0.70-1.30) 08/09/23 11:28 Glucose 133 mg/dL (74-106) H 08/09/23 11:28 TSH 1.57 uIU/mL (0.358-3.74) 07/21/22 15:44 COAG Pre-Assessment Diagnosis/Proposed Procedure Planned Operative Procedure(s): COLONSCOPY Anesthesia History 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 When Was Last Pacemaker Check QUESTION #4 FULL TEXT: You/Your Family Experience fever (hyperthermia) with Anesthesia Last Oral Intake Last Oral intake: Last Oral Intake NPO since 05:00 06/01/24 08:49 Meds taken in AM with sips of Yes 06/01/24 08:49 water? Meds patient instructed to atenolol 06/01/24 08:49 take am of surgery PONV PONV - building construction inspector: PONV - building construction inspector Female No 05/30/24 10:27 HX of Motion Sickness No 05/30/24 10:27 HX of N/V After Surgery No 05/30/24 10:27 Non-Smoker Yes 05/30/24 10:27 Duration of Surgery greater No 05/30/24 10:27 than 60 minutes Number of Risk Factors 1 05/30/24 10:27 PONV Score Low Risk 05/30/24 10:27 Height & Weight Height & Weight: Anesthesia: Height & Weight Height 6 ft 3 in 06/01/24 08:49 Weight: 138 kg 06/01/24 08:49 Body Mass Index (BMI) 38.0 06/01/24 08:49 Respiratory Assessment Respiratory Assessment - building construction inspector: Respiratory Tract Infection Hx - building construction inspector Hx Respiratory Tract Infection No 05/30/24 10:27 STOP Sleep Apnea STOP Sleep Apnea - building construction inspector: STOP Sleep Apnea - building construction inspector Hx Hypertension Yes 05/30/24 10:27 Hx Sleep Apnea No 05/30/24 10:27 CPAP BIPAP Do you snore loudly (louder No 05/30/24 10:27 than talking or can be heard Do you often feel tired/ No 05/30/24 10:27 fatigued/ sleepy during daytime? Has anyone observed you stop No 05/30/24 10:27 breathing during sleep? STOP Results Negative 05/30/24 10:27 QUESTION #5 FULL TEXT : Do you snore loudly (louder than talking or can be heard through closed doors)? Tobacco Use History Tobacco Use History - building construction inspector: Tobacco Use History - building construction inspector Tobacco Use Smoking Status Former smoker 05/30/24 10:27 Hx Tobacco Use No 05/30/24 10:27 Years Smoking Packs Smoked per Day Smoking Cessation Date was Yes - quit smoking within 15 05/30/24 10:27 within the last 15 years years Hx Smoking Cessation Date 07/19/13 05/30/24 10:27 Hx Smoking Cessation Counseling Hematologic Medial History Hematologic Hx - building construction inspector: Hematologic Medical Hx - plater barrel Hx of Blood Transfusion No 05/30/24 10:27 Hx of Transfusion in last 3 No 05/30/24 10:27 Months Date of Last Transfusion (if within last 3 months) Ever experience any problems No 05/30/24 10:27 with transfusion(s)? Specify any problems Hx of Preganancy in last 3 N/A 05/30/24 10:27 Months Nurse Filling Out Transfusion [facility] 05/30/24 10:27 & Questions: Date: 05/30/24 05/30/24 10:27 Time: 10:38 05/30/24 10:27 Patient unable to answer at this time (ie. confused, unrespo /Reproduction History /Reproductive History - building construction inspector: /Reproductive Hx- building construction inspector Hx Now Gestational Age (in weeks): EDC: Hx Hx Para Hx Section SAB PFSH Medical History Arthritis High cholesterol Former smoker Cardiology follow-up encounter Personal history of colonic polyps Health care maintenance Erectile dysfunction Colon cancer screening BPH (benign prostatic hyperplasia) Type 2 diabetes mellitus Dilated aortic root Borderline type 2 diabetes mellitus Obesity (BMI 30-39.9) Benign neoplasm of colon Non-rheumatic aortic regurgitation Atherosclerosis of coronary artery of [place] heart without angina pectoris Chronic back pain Bicuspid aortic valve Hyperlipemia Hypertension Home Medications ?Medication ?Instructions ?Recorded ?Last Taken ?Type aspirin 81 mg chewable tablet 1 tab PO DAILY 10/05/18 05/26/24 History sildenafil 25 mg tablet (Viagra) 25 mg PO ONCE PRN sexual activity 08/09/23 Unknown Rx #30 tabs lisinopril 40 mg tablet See Rx Instructions .Route 12/06/23 05/31/24 Rx .COMPLEX #90 tabs atorvastatin 80 mg tablet See Rx Instructions .Route 02/14/24 05/31/24 Rx .COMPLEX #90 tabs atenolol 50 mg tablet 50 mg PO DAILY #90 TABLETS 03/28/24 06/01/24 Rx Allergy/AdvReac Type Severity Reaction Status Date / Time No Known Allergies Allergy Verified 06/01/24 08:49 Family History Aunt Colon cancer Uncle Myocardial infarction Father CVA (cerebral vascular accident) Sister Cancer lyphoma Surgical History Hx of colonoscopy History of coronary artery stent placement (~12/21/06) History of appendectomy Social History current occupational status: employed current occupation: SELF Smoking Status: Former smoker Tobacco: How many years used: 20 how long ago did patient quit smokin alcohol intake: current alcohol intake frequency: a few times a month Alcohol type: beer substance use type: does not use what type of physical activity do you participate 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
--- NOTE | 2024-06-01 08:59 | HP.PCM_ITS ---
HPI - General HPI Narrative PAULIE SOLOMON, is a 63 M who presents for screening colonoscopy. The patient's last colonoscopy was 10 years ago. He says there were polyps. He denies abdominal pain or blood in the stool or family history of colon cancer. He is on aspirin which has been held. [facility] Medical History Arthritis High cholesterol Former smoker Cardiology follow-up encounter Personal history of colonic polyps Health care maintenance Erectile dysfunction Colon cancer screening BPH (benign prostatic hyperplasia) Type 2 diabetes mellitus Dilated aortic root Borderline type 2 diabetes mellitus Obesity (BMI 30-39.9) Benign neoplasm of colon Non-rheumatic aortic regurgitation Atherosclerosis of coronary artery of [place] heart without angina pectoris Chronic back pain Bicuspid aortic valve Hyperlipemia Hypertension Home Medications ?Medication ?Instructions ?Recorded ?Last Taken ?Type aspirin 81 mg chewable tablet 1 tab PO DAILY 10/05/18 05/26/24 History sildenafil 25 mg tablet (Viagra) 25 mg PO ONCE PRN sexual activity 08/09/23 Unknown Rx #30 tabs lisinopril 40 mg tablet See Rx Instructions .Route 12/06/23 05/31/24 Rx .COMPLEX #90 tabs atorvastatin 80 mg tablet See Rx Instructions .Route 02/14/24 05/31/24 Rx .COMPLEX #90 tabs atenolol 50 mg tablet 50 mg PO DAILY #90 TABLETS 03/28/24 06/01/24 Rx Allergy/AdvReac Type Severity Reaction Status Date / Time No Known Allergies Allergy Verified 06/01/24 08:49 Family History Aunt Colon cancer Uncle Myocardial infarction Father CVA (cerebral vascular accident) Sister Cancer lyphoma Surgical History Hx of colonoscopy History of coronary artery stent placement (~12/21/06) History of appendectomy Social History current occupational status: employed current occupation: SELF Smoking Status: Former smoker Tobacco: How many years used: 20 how long ago did patient quit smokin alcohol intake: current alcohol intake frequency: a few times a month Alcohol type: beer substance use type: does not use what type of physical activity do you participate 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 Past Medical/Surgical History Planned Operation Planned Operative Procedure(s): COLONSCOPY Previous Hospitalizations/Surgeries HX Hospitalizations: No Any Problems With Anesthesia: No You/Your Family Experience Fever (Hyperthermia) With Anes: No Cholinesterase deficiency: No Cardiovascular Hx Hypertension: Yes Respiratory Hx Sleep Apnea: No Hx Respiratory Tract Infection/Cold (presently): No Do You Snore Loudly (louder than talking or can be heard): No Do You Often Feel Tired/ Fatigued/ Sleepy Dring Daytime?: No Has Anyone Observed You Stop Breathing During Sleep?: No Result (for STOP score): Negative Smoking Status: Former smoker Neurological Does patient have nerve stimulator: No Miscellaneous Recent Exposure to Contagious Disease: No Allergies No Known Allergies Allergy (Verified 06/01/24 08:49) Discharge Is Pt Admitted From a Correction, or a Intermediate: No Who Could Help: FAMILY MEMBER Vital Signs Vital Signs Vital Signs: 06/01/24 08:49 06/01/24 08:49 06/01/24 08:57 Temperature 97.7 F L 97.7 F L Temperature Source Temporal Pulse Rate 65 65 Respiratory Rate 17 17 Respiratory Pattern Normal Blood Pressure 134/94 H 134/94 H Blood Pressure Mean 107 Blood Pressure Source Monitor Blood Pressure Position Semi-Fowlers Blood Pressure Location Left Arm Pulse Ox 97 97 Oxygen Delivery Method Room Air Weight Weight: 304 lb 3.806 oz Body Mass Index (BMI) 38.0 Physical Exam Const alert and oriented x3 HEENT normocephalic Eyes PERRL Resp normal respiratory effort and normal air movement Cardio regular rate and regular rhythm GI soft to palpation, non-tender and non-distended Extremity normal to inspection Assessment & Plan Assessment/Plan (1) Colon cancer screening: PLAN: I explained endoscopy in detail to the patient. I explained the risks including but not limited to stroke or heart attack with anesthesia, perforation of the GI tract, bleeding, infection. I explained that any of these could necessitate further emergency surgery. The patient understands and all questions were answered sufficiently. The patient wishes to proceed with procedure. Spike Cao MD Pager: [facility] [address] [place] [address] [address] [place] [phone] Office: Surgery Risks - Colonoscopy Risks Include but are not Limited To: Risks include but are not limited to: Bleeding, perforation requiring further surgery, inability to complete colonoscopy requiring barium enema.
--- NOTE | 2024-06-01 09:30 | COLBX_PTH ---
PATIENT: PAULIE SOLOMON LOC: EN U#:[id number] AGE/SX: 63/M ROOM: RE06/01/[address]: Dr. Spike Cao MD : 1960 BED: DIS: 06/01/2024 SPEC #: [id number] RECD: 06/01/24 11:18 STATUS: SAE FREY #: [id number] JAZZMINE: 06/01/24 09:[address]: Spike Cao DEPT: SURGICAL PATHOLOGY RECD BY: Jenniffer Sheffield ENTERED: 06/01/24 11:48 SP TYPE: COLON BX OTHR DR: Dr. Mary Linares MD Tissues: Cecum, NOS Procedures: Surgery Specimen Level IV HEADER OPERATION: Colonoscopy with polypectomy PRE-OP DIAGNOSIS: Colon cancer screening TISSUE SUBMITTED: Cecum polyp MICROSCOPIC DIAGNOSIS Cecal polyp, biopsy: Fragments of tubular adenoma. AM.mr 06/02/2024 MICROSCOPIC DESCRIPTION Slides are reviewed. GROSS DESCRIPTION Received in fixative is one container labeled with the patient's name and designated Cecum polyp. The specimen consists of two irregular fragments of light alberto soft tissue that in aggregate measure 0.6 x 0.2 x 0.1 cm. The specimen is totally submitted in one cassette. 06/01/2024 TC:5 CPT:27008
--- NOTE | 2024-06-01 09:30 | OP.COLON_ITS ---
Patient Name: Ruel Yi Procedure Date: 06/01/2024 8:58 AM Date of : 1960 Age: 63 Procedure: Colonoscopy Indications: Screening for colorectal malignant neoplasm Providers: Spike Cao MD Referring MD: Mary Linares MD Medicines: Propofol per Anesthesia Patient Profile: Last Colonoscopy: 10 years ago. Complications: No immediate complications. Procedure: Pre-Anesthesia Assessment: - Prior to the procedure, a History and Physical was performed, and patient medications and allergies were reviewed. The patient's tolerance of previous anesthesia was also reviewed. The risks and benefits of the procedure and the sedation options and risks were discussed with the patient. All questions were answered, and informed consent was obtained. Prior Anticoagulants: The patient has taken no anticoagulant or antiplatelet agents except for aspirin. After reviewing the risks and benefits, the patient was deemed in satisfactory condition to undergo the procedure. After I obtained informed consent, the scope was passed under direct vision. Throughout the procedure, the patient's blood pressure, pulse, and oxygen saturations were monitored continuously. The Colonoscope was introduced through the anus and advanced to the cecum, identified by appendiceal orifice and ileocecal valve. The colonoscopy was performed without difficulty. The patient tolerated the procedure well. The quality of the bowel preparation was good. The ileocecal valve, appendiceal orifice, and rectum were photographed. Scope In: 9:09:55 AM Scope Withdrawal Time 0 hours 7 minutes 22 seconds Scope Out: 9:24:31 AM Total Procedure Duration Time 0 hours 14 minutes 36 seconds Findings: A small polyp was found in the cecum. The polyp was removed with a hot snare. Resection and retrieval were complete. The exam was otherwise without abnormality on direct and retroflexion views. Impression: - One small polyp in the cecum, removed with a hot snare. Resected and retrieved. - The examination was otherwise normal on direct and retroflexion views. Recommendation: - Discharge patient to home. - Resume previous diet. - Continue present medications. - Await pathology results. - Repeat colonoscopy in 5 years for surveillance based on pathology results. Procedure Code(s): --- Professional --- 19362, Colonoscopy, flexible; with removal of tumor(s), polyp(s), or other lesion(s) by snare technique Diagnosis Code(s): --- Professional --- Z12.11, Encounter for screening for malignant neoplasm of colon D12.0, Benign neoplasm of cecum CPT copyright 2021 [employer]. All rights reserved. The codes documented in this report are preliminary and upon pre coder review may be revised to meet current compliance requirements. Spike Cao MD 06/01/2024 9:29:51 AM This report has been signed electronically. Number of Addenda: 0 Note Initiated On: 06/01/2024 8:58 AM
--- NOTE | 2024-06-01 09:30 | OP.CCLET_ITS ---
06/01/2024 Mary Linares MD [address] [place] [address] [place] [address] Re : Colonoscopy procedure for Ruel Yi Dear Dr. Linares This procedure was performed on May. My impressions and recommendations are as follows: Impressions : - One small polyp in the cecum, removed with a hot snare. Resected and retrieved. - The examination was otherwise normal on direct and retroflexion views. Recommendations : - Discharge patient to home. - Resume previous diet. - Continue present medications. - Await pathology results. - Repeat colonoscopy in 5 years for surveillance based on pathology results. My findings are described in the full procedure note, which is enclosed. If I can be of further assistance, please feel free to contact me at Doctor phone number(s): , Work: . Sincerely, Spike Cao MD 06/01/2024 9:29:51 AM This report has been signed electronically.
--- NOTE | 2024-06-01 09:32 | PCM.POST.ANE ---
Anesthesia: Postop Eval I Current Vital Signs Temperature: 97.2 F Pulse Rate: 66 Blood Pressure: 86/61 Respiratory Rate: 14 Pulse Ox: 97 Oxygen Delivery Method: Room Air Assessment Airway patent: Yes Spontaneous unlabored respirations: Yes Mental status: Asleep nausea: No Vomiting: No Anesthesia Complication: No Fluid Hydration Crystalloid volume administer (ml): 40 Total IV fluid infused: 40 Progress Note Anesthesia document: Postop Eval 1 completed: Yes
--- NOTE | 2024-06-01 16:23 | PCM.POSTANE2 ---
Anesthesia Postop Eval I Sum Postop Eval Completion status Anesthesia document: Postop Eval 1 completed: Yes Anesthesia Postop Eval I Summary Anesthesia Postop Eval I Summary: Anesthesia Postop Eval I: Assessment Summary Airway patent Yes 06/01/24 09:34 [email or web address] Spontaneous unlabored Yes 06/01/24 09:34 [email or web address] respirations Mental status Asleep 06/01/24 09:34 [email or web address] nausea No 06/01/24 09:34 [email or web address] Vomiting No 06/01/24 09:34 [email or web address] Anesthesia Postop Eval I: Fluid Summary Crystalloid volume administer 40 06/01/24 09:34 [email or web address] (ml) Colloids volume administered ( ml) Blood Product volume administered (ml) Total IV fluid infused 40 06/01/24 09:34 [email or web address] Anesthesia Postop Eval I: Summary Notes Anesthesia Complication No 06/01/24 09:34 [email or web address] Anesthesia Complication Comment: Post-operative progress note Anesthesia: Postop Eval II Evaluation Mental status: Awake and Calm Pain Level: 0 nausea: No Vomiting: No
== END 2024-06-01 10:33 | disposition home or self-care (01) ==
LOC: EN 08:25 → AC 08:26
PROVIDERS: PCP Internal Medicine; Referring Provider Internal Medicine; Visit Provider Surgery
PROC: 0DJD8ZZ Inspection of Lower Intestinal Tract, Via Natural or Artificial Opening Endoscopic (ICD-10-PCS; CPT 45378; principal; 2024-06-01 09:25)
DX: Z12.11 Encounter for screening for malignant neoplasm of colon (principal); E11.9 Type 2 diabetes mellitus without complications; D12.0 Benign neoplasm of cecum; I10 Essential (primary) hypertension; I25.10 Atherosclerotic heart disease of native coronary artery without angina pectoris; E78.00 Pure hypercholesterolemia, unspecified; Z87.891 Personal history of nicotine dependence; Z79.899 Other long term (current) drug therapy; Z79.82 Long term (current) use of aspirin; Z95.5 Presence of coronary angioplasty implant and graft
CPT/HCPCS: 45385; 88305; A4216; J2405